=== PATIENT | male | born 1940 | race Caucasian/White ===

== ENCOUNTER 2019-05-17 18:05 | Inpatient (IN) ==
[2019-05-17] MEDS ORDERED: LIDOCAINE/EPINEPHRINE 1% 20 ML VIAL INFIL ONE (18:25)
[2019-05-17] MEDS ORDERED: SODIUM CHLORIDE 0.9% 500 ML IV SCH (18:30)
[2019-05-17 18:36] LABS: Basophils # (auto) 0.01 K/uL (0-0.2); Basophils % (auto) 0.2 %; Eosinophils # (auto) 0.06 K/uL (0-0.5); Eosinophils % (auto) 1.1 %; Hemoglobin 16.8 g/dL (14.0-18.0); Immature Granulocytes # (auto) 0.02 K/uL (0.00-0.02); Immature Granulocytes % (auto) 0.4 %; Lymphocytes # (auto) 1.54 K/uL (1.2-3.4); Lymphocytes % (auto) 27.9 %; Mean Corpuscular Hemoglobin 35.6 pg (25-34); Mean Corpuscular Hgb Conc 35.7 g/dL (32-36); Mean Corpuscular Volume 99.6 fL (80-100); Mean Platelet Volume 11.7 fL (7.4-10.4); Monocytes # (auto) 0.59 K/uL (0.11-0.59); Monocytes % (auto) 10.7 %; Neutrophils # (auto) 3.29 K/uL (1.4-6.5); Neutrophils % (auto) 59.7 %; Platelet Count 168 K/uL (130-400); RDW Coefficient of Variation 12.8 % (11.5-14.5); RDW Standard Deviation 46.6 fL (36.4-46.3); Red Blood Count 4.72 M/uL (4.7-6.1); White Blood Count 5.51 K/uL (4.8-10.8)
[2019-05-17 18:54] LABS: Albumin Level 4.4 gm/dl (3.4-5.0); BUN Creatinine Ratio 9.8 (10-20); Blood Urea Nitrogen 22 mg/dl (7-18); Calcium 9.5 mg/dl (8.5-10.1); Carbon Dioxide 25 mmol/L (21-32); Chloride 104 mmol/L (98-107); Est GFR (Non-African American) 26.7; Glucose 134 mg/dl (70-99); Lipase 186 U/L (73-393); Magnesium 2.2 mg/dl (1.8-2.4); Sodium 139 mmol/L (136-145)
[2019-05-17] MEDS: NITROGLYCERIN 2% OINTMENT 30GM TUBE EXT SCH (19:07)
[2019-05-17 19:17] LABS: Alanine Aminotransferase 53 U/L (12-78); Albumin Globulin Ratio 1.2 (0.9-2); Alkaline Phosphatase 107 U/L (45-117); Aspartate Aminotransferase 35 U/L (15-37); Creatine Kinase 90 U/L (39-308); Creatine Kinase MB 1.5 ng/ml (0.5-3.6); Globulin 3.7 gm/dl (2.5-4.0); NT Pro B Type Natriuretic Pept 1170 pg/ml (0-1800); Total Protein 8.1 gm/dl (6.4-8.2); Troponin I 0.207 ng/ml (0-0.045)
--- NOTE | 2019-05-17 19:51 | CT Scan Report ---
CT head/brain wo con CLINICAL HISTORY: Syncope. Patient on blood thinners. COMPARISON STUDY: No previous studies for comparison. TECHNIQUE: Axial CT of the brain is performed from the vertex to the skull base. IV contrast was not administered for this examination. A dose lowering technique was utilized adhering to the principles of ALARA. CT DOSE: FINDINGS: No intra or extra-axial mass lesions are visualized. There is no CT evidence of acute cortical infarc tion. There is no evidence of midline shift. There is no acute hemorrhage. No calvarial fractures ar e visualized. There are minimal white matter hypodensities likely on a small vessel basis. There is no hydrocephalus. There is ventricular asymmetry which is likely developmental. There is pro minent bifrontal extra-axial space likely secondary to volume loss. There is a prominent cisterna mag na. There is no evidence of acute sinusitis. There is a right frontal scalp contusion. IMPRESSION: 1. Right frontal scalp contusion 2. No acute intracranial findings. Electronically signed by: Chip Ferro M.D. 05/17/2019 7:50 PM
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
--- NOTE | 2019-05-17 20:09 | CT Scan Report ---
CT thoracic spine wo con CT DOSE: CLINICAL HISTORY: Back pain status post trauma TECHNIQUE: Helical images were acquired in the transverse plane. Sagittal coronal reformatted images were acquired. A dose lowering technique was utilized adhering to the principles of ALARA. COMPARISON STUDY: None. FINDINGS: There is a 5.8 mm left upper lobe pulmonary nodule. In a high-risk patient, 12 month follow -up is optional. There are dependent atelectatic changes. There are multiple scattered micronodules. No paraspinal hemorrhage is visualized. There is no evidence of acute fracture. No subluxations are visualized. 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 IMPRESSION: 1. 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 No acute fractures or traumatic subluxations 4. 5.8 mm left upper lobe pulmonary nodule Electronically signed by: Chip Ferro M.D. 05/17/2019 8:08 PM
[2019-05-17] MEDS ORDERED: ACETAMINOPHEN 1,000 MG/100 ML VIAL IV STA (20:15)
[2019-05-17] MEDS ORDERED: ONDANSETRON INJ 2 MG/ML 2 ML VIAL IV STA (20:15)
[2019-05-17] MEDS ORDERED: HYDROmorphone INJ 0.5 MG/0.5 ML SYR IV PRN (20:15)
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
[2019-05-17] MEDS ORDERED: ONDANSETRON INJ 2 MG/ML 2 ML VIAL IV PRN (23:56)
[2019-05-17] MEDS ORDERED: MAGNESIUM HYDROXIDE SUSP 30 ML UDC PO PRN (23:56)
[2019-05-17] MEDS ORDERED: NITROGLYCERIN SL 0.4 MG/TAB TAB SL PRN (23:56)
[2019-05-17] MEDS ORDERED: MoRPHine SULFATE 2 MG/ML CARP IV PRN (23:56)
[2019-05-17] MEDS ORDERED: ALUMINUM/MAGNESIUM SUSP 30 ML UDC PO PRN (23:56)
[2019-05-17] MEDS ORDERED: ACETAMINOPHEN 325 MG TAB PO PRN (23:56)
[2019-05-18] MEDS: RANOLAZINE 500 MG ER TAB PO SCH ×3 (00:48→21:09)
[2019-05-18] MEDS: APIXABAN 5 MG TABLET PO SCH ×2 (00:48→08:40)
[2019-05-18] MEDS: NITROGLYCERIN 2% OINTMENT 30GM TUBE EXT SCH ×3 (00:50→13:10)
[2019-05-18 08:24] LABS: Eosinophils # (auto) 0.07 K/uL (0-0.5); Eosinophils % (auto) 1.3 %; Hematocrit (blood only) 41.6 % (42-52); Immature Granulocytes # (auto) 0.01 K/uL (0.00-0.02); Immature Granulocytes % (auto) 0.2 %; Lymphocytes # (auto) 0.83 K/uL (1.2-3.4); Lymphocytes % (auto) 15.3 %; Mean Corpuscular Hemoglobin 34.6 pg (25-34); Mean Corpuscular Hgb Conc 33.7 g/dL (32-36); Mean Corpuscular Volume 102.7 fL (80-100); Mean Platelet Volume 10.3 fL (7.4-10.4); Monocytes # (auto) 0.53 K/uL (0.11-0.59); Monocytes % (auto) 9.8 %; Neutrophils # (auto) 3.98 K/uL (1.4-6.5); Neutrophils % (auto) 73.4 %; Platelet Count 137 K/uL (130-400); RDW Standard Deviation 48.9 fL (36.4-46.3); Red Blood Count 4.05 M/uL (4.7-6.1); White Blood Count 5.42 K/uL (4.8-10.8)
[2019-05-18] MEDS: VITAMIN B COMPLEX TAB PO SCH (08:39)
[2019-05-18] MEDS: CYANOCOBALAMIN 500 MCG TABLET (VITAMIN B-12) PO SCH (08:40)
[2019-05-18] MEDS: POTASSIUM CHLORIDE 20 MEQ TABCR PO SCH (08:40)
[2019-05-18] MEDS: FOLIC ACID 1 MG TAB PO SCH (08:40)
[2019-05-18] MEDS: ASCORBIC ACID 500 MG TAB PO SCH (08:41)
[2019-05-18] MEDS: SACUBITRIL-VALSARTAN 24-26 MG TAB PO SCH ×2 (08:42→21:08)
[2019-05-18] MEDS: ISOSORBIDE DINITRATE 20 MG TAB PO SCH ×2 (08:42→13:05)
[2019-05-18] MEDS: PANTOprazole 40 MG TAB PO SCH (08:42)
[2019-05-18 08:43] LABS: Calcium 8.9 mg/dl (8.5-10.1); Creatinine Clr Calc Pharmacy 29.4 ml/min; Est GFR (African American) 36.4; Est GFR (Non-African American) 31.4; Potassium 4.1 mmol/L (3.5-5.1)
[2019-05-18] MEDS: OMEGA-3 (PURIFIED FISH OIL) 1 GM CAP PO SCH (08:43)
[2019-05-18] MEDS: CHOLECALCIFEROL 1,000 UNITS TAB PO SCH (08:44)
[2019-05-18] MEDS ORDERED: NON-FORMULARY MEDICATION (Cod Liver Oil 1 CAP) PO SCH (09:00)
[2019-05-18] MEDS ORDERED: METOPROLOL SUCC 25MG EXT REL TAB PO SCH (09:00)
[2019-05-18] MEDS ORDERED: FUROSEMIDE 20 MG TAB PO SCH (09:00)
[2019-05-18] MEDS ORDERED: HydrALAZINE 10 MG TAB PO SCH (09:00)
--- NOTE | 2019-05-18 13:47 | Hospitalist Progress Note ---
Date of Service May 18, 2019 Assessment & Plan (1) Bradycardia: HR in the 40's at rest, was in the 30's when sleeping last night unsure of why he does not have pacemaker with ICD plan for pacemaker on Monday with EP hold metoprolol, will use Amiodarone to try to prevent vfib will hold Eliquis, place on Heparin drip (2) Syncope: Likely secondary to acute blood pressure drop with use of nitroglycerin sublingual x3. will keep on monitor, HR in the 40's at baseline had ICD fire 5 days ago for ventricular fibrillation Dr. Perkins recommends amiodarone drip, will start may need to hold if HR drops to 30's consistently plan for pacemaker on Monday troponin 0.2 for two sets, get one more value, no signs of ACS (3) Elevated troponin I level: Elevated troponin I level/CAD/hypertension/CHF/history of CABG- had some chest pain that resolved quickly after SL Nitro troponin 0.2 x 2 sets, no rise and fall check echo cardiology following (4) CAD (coronary artery disease), [place] coronary artery: aspirin, statin therapy requesting old records (5) CHF (congestive heart failure): examines euvolemic (6) Hypertension: BP low normal holding metoprolol, Lasix, hydralazine (7) Status post aorto-coronary artery bypass graft: Obtain records from the [place]. (8) Chronic anticoagulation: hold Eliquis, change to heparin drip in anticipation of pacemaker (9) Hyperlipidemia LDL goal <70: Continue atorvastatin 40 mg at bedtime. Check a fasting lipid panel (10) GERD (gastroesophageal reflux disease): Change omeprazole to pantoprazole (11) B12 deficiency: Continue 1000 mcg p.o. daily supplement Subjective patient resting comfortably this morning, no issues overnight he denies any chest pain currently, breathing well he ate breakfast discussed recent events, had a syncopal episode earlier in the week that was due to ventricular fibrillation his ICD fired appropriately last night he had some chest pain, took Nitro SL, 3 tabs 5 minutes apart each he passed out, hit is head in the kitchen very complex case, has had CABG in the past in [place] has the ICD since [address] Clay who called Dr. Perkins to discuss the case HR is in the 40's, unsure why he does not have a pacemaker to allow for more aggressive anti-arrhythmic control for now will place on amiodarone drip, plan for pacemaker on Monday reviewed labs, Cr down to 1.9 from 2.2 troponin is 0.2 for two sets Review of Systems Review of Systems: All systems reviewed & are unremarkable except as noted in HPI & below Respiratory: no cough and no dyspnea Cardiovascular: no chest pain, no palpitations, no syncope and no edema Gastrointestinal: no abdominal pain, no nausea, no vomiting, no constipation and no diarrhea/loose stools Physical Exam Constitutional: WD/WN, vitals as above Eyes: PERRL, conjunctivae normal, anicteric sclerae ENMT: external ear and nose normal, oropharynx normal Neck: trachea midline, no thyromegaly Respiratory: normal respiratory effort, lungs clear to auscultation Cardiovascular: Rate/Rhythm: regular rhythm and + bradycardic Heart Sounds: normal S1 and normal S2; no murmur Vessels: no JVD Extremities: normal capillary refill; no edema Gastrointestinal (Abdomen): normal bowel sounds, soft, nontender, no hepatosplenomegaly Musculoskeletal: no cyanosis or clubbing, extremities motor strength 5/5 Skin: no rashes, warm and dry Neurologic: patellar DTR's 2+ bilat, sensation intact and PERRL, EOMI, accommodation nl, no face palsy, no dysarthria Psychiatric: A+Ox3, euthymic affect Lymphatic: no cervical or axillary lymphadenopathy Results & Data Vital Signs (Past 12 Hours) Vital Signs Temp Pulse Pulse Resp BP Pulse Ox 05/18/19 11:40 36.9 C 47 L 18 100/45 L 95 05/18/19 09:25 42 L 05/18/19 07:44 36.4 C L 43 L 18 113/42 L 96 05/18/19 04:12 36 L 108/51 L 05/18/19 03:36 36.7 C 37 L 18 103/47 L 95 Laboratory Results Laboratory Results - last 24 hr 05/17/19 05/17/19 05/18/19 18:00 18:00 08:06 WBC 5.51 5.42 RBC 4.72 4.05 L Hgb 16.8 14.0 Hct 47.0 41.6 L MCV 99.6 102.7 H MCH 35.6 H 34.6 H MCHC 35.7 33.7 RDW Std Deviation 46.6 H 48.9 H RDW Coeff of Sandie 12.8 13.0 Plt Count 168 137 MPV 11.7 H 10.3 Immature Gran % (Auto) 0.4 0.2 Neut % (Auto) 59.7 73.4 Lymph % (Auto) 27.9 15.3 [place] % (Auto) 10.7 9.8 Eos % (Auto) 1.1 1.3 Baso % (Auto) 0.2 0.0 Immature Gran # (Auto) 0.02 0.01 Neut # (Auto) 3.29 3.98 Lymph # (Auto) 1.54 0.83 L [place] # (Auto) 0.59 0.53 Eos # (Auto) 0.06 0.07 Baso # (Auto) 0.01 0.00 Sodium 139 Potassium 4.0 Chloride 104 Carbon Dioxide 25 Anion Gap 10.0 BUN 22 H Creatinine 2.25 H Est Cr Clr Drug Dosing Not Reportable Est GFR ( Amer) 31.0 Est GFR (Non-Af Amer) 26.7 BUN/Creatinine Ratio 9.8 L Glucose 134 H Calcium 9.5 Magnesium 2.2 Total Bilirubin 1.0 AST 35 ALT 53 Alkaline Phosphatase 107 Total Creatine Kinase 90 CK-MB (CK-2) 1.5 CK/CKMB % Calc 1.7 Troponin I 0.207 H* NT-Pro-B Natriuret Pep 1170 Total Protein 8.1 Albumin 4.4 Globulin 3.7 Albumin/Globulin Ratio 1.2 Lipase 186 05/18/19 05/18/19 08:06 10:18 WBC RBC Hgb Hct MCV MCH MCHC RDW Std Deviation RDW Coeff of Sandie Plt Count MPV Immature Gran % (Auto) Neut % (Auto) Lymph % (Auto) [place] % (Auto) Eos % (Auto) Baso % (Auto) Immature Gran # (Auto) Neut # (Auto) Lymph # (Auto) [place] # (Auto) Eos # (Auto) Baso # (Auto) Sodium 138 Potassium 4.1 Chloride 104 Carbon Dioxide 29 Anion Gap 5.0 BUN 22 H Creatinine 1.97 H Est Cr Clr Drug Dosing 29.4 Est GFR ( Amer) 36.4 Est GFR (Non-Af Amer) 31.4 BUN/Creatinine Ratio 11.0 Glucose 124 H Calcium 8.9 Magnesium Total Bilirubin AST ALT Alkaline Phosphatase Total Creatine Kinase CK-MB (CK-2) CK/CKMB % Calc Troponin I 0.266 H* NT-Pro-B Natriuret Pep Total Protein Albumin Globulin Albumin/Globulin Ratio Lipase Medications Administered Current Inpatient Medications Acetaminophen (Tylenol) 650 mg PO Q4H PRN PRN Reason: Pain or Fever Stop: 06/16/19 23:55 Al Hydrox/Mg Hydrox/Simethicone (Maalox) 15 ml PO Q4H PRN PRN Reason: Dyspepsia Stop: 06/16/19 23:55 Apixaban (Eliquis) 5 mg PO BID [facility] Stop: 06/16/19 23:55 Last Admin: 05/18/19 08:40 Dose: 5 mg Documented by: Ascorbic Acid (Vitamin C) 2,000 mg PO QAM [facility] Stop: 06/17/19 08:59 Last Admin: 05/18/19 08:41 Dose: 2,000 mg Documented by: Aspirin (Ecotrin Ectab) 81 mg PO HS [facility] Stop: 06/17/19 20:59 Atorvastatin Calcium (Lipitor) 40 mg PO HS [facility] Stop: 06/17/19 20:59 Cyanocobalamin (Vitamin B-12) 1,000 mcg PO QAM [facility] Stop: 06/17/19 08:59 Last Admin: 05/18/19 08:40 Dose: 1,000 mcg Documented by: Fish Oil ([place]-3 (Purified Fish Oil)) 2 gm PO QAM [facility] Stop: 06/17/19 08:59 Last Admin: 05/18/19 08:43 Dose: 2 gm Documented by: Folic Acid (Folvite) 1 mg PO QAM [facility] Stop: 06/17/19 08:59 Last Admin: 05/18/19 08:40 Dose: 1 mg Documented by: Furosemide (Lasix) 20 mg PO QAM [facility] Stop: 06/17/19 08:59 Hydralazine HCl (Apresoline) 30 mg PO TID [facility] Stop: 06/17/19 08:59 Isosorbide Dinitrate (Isordil) 20 mg PO BID@0700,1200 [facility] Stop: 06/17/19 06:59 Last Admin: 05/18/19 13:05 Dose: 20 mg Documented by: Magnesium Hydroxide (Milk Of Magnesia) 30 ml PO Q12H PRN PRN Reason: Constipation Stop: 06/16/19 23:55 Metoprolol Su[facility] ([facility]l) [facility] Stop: 06/17/19 08:59 Last Admin: 05/18/19 08:41 Dose: 25 mg Documented by: Morphine Sulfate (Morphine Sulfate) 2 mg IV Q30M PRN PRN Reason: Chest Pain Stop: 05/31/19 23:55 Nitroglycerin (Nitro-Bid 2%) 1 inch EXT Q6H [facility] Stop: 06/16/19 18:44 Last Admin: 05/18/19 13:10 Dose: Not Given Documented by: Nitroglycerin (Nitrostat) 0.4 mg SL UD PRN PRN Reason: Chest Pain Stop: 06/16/19 23:55 Ondansetron HCl (Zofran) 4 mg IV Q6H PRN PRN Reason: Nausea Stop: 06/16/19 23:55 Pantoprazole Sodium (Protonix) 40 mg PO [facility] Stop: 06/17/19 08:59 Last Admin: 05/18/19 08:42 Dose: 40 mg Documented by: Potassium Chloride (Klor-Con M20) 20 meq [facility] [place] Stop: 06/17/19 08:59 Last Admin: 05/18/19 08:40 Dose: 20 meq Documented by: Ranolazine (Ranexa) 500 mg PO BID [facility] Stop: 06/16/19 23:55 Last Admin: 05/18/19 08:40 Dose: 500 mg Documented by: Sacubitril/Valsartan (Entresto 24/26mg) 1 tab PO BID [facility] Stop: 06/17/19 08:59 Last Admin: 05/18/19 08:42 Dose: 1 tab Documented by: Vitamin B Complex (Vitamin B Complex) 1 tab PO QAM [facility] Stop: 06/17/19 08:59 Last Admin: 05/18/19 08:39 Dose: 1 tab Documented by: Vitamin D (Vitamin D3) 5,000 units PO QAM [facility] Stop: 06/17/19 08:59 Last Admin: 05/18/19 08:44 Dose: 5,000 units Documented by: PG Care Time/CCT Total # of Minutes Spent Total Time Spent with Patient: Total time spent is greater than 50% in coordination of care (as documented) at patient's floor/unit and/or counseling patient:
--- NOTE | 2019-05-18 14:59 | Cardiology Consultation ---
Date of Consultation May 18, 2019 Assessment & Plan (1) Ventricular fibrillation: (2) S/P ICD (internal cardiac defibrillator) procedure: (3) CAD (coronary artery disease), red devil coronary artery: (4) Chronic systolic CHF (congestive heart failure): (5) Cardiomyopathy: (6) Bradycardia: (7) Status post aorto-coronary artery bypass graft: (8) Elevated troponin: ASSESSMENT/PLAN: 1. Ventricular fibrillation s/p ICD shock: Reported shock earlier this week and again yesterday. Apparently had similar issues this past summer and even late last winter. Records are requested from several other facilities. Has already had ischemic evaluation with cardiac catheterization with these issues earlier this year. No anginal symptoms other than some chest discomfort after he already become symptomatic with dizziness/fuzziness. Would like to titrate beta-paul and anti rhythmic therapy but has significant sinus bradycardia with rates in upper 30s to low 40s at times. Hold metoprolol for now. Will start mexiletine 150 mg p.o. t.i.d. after discussion with EP, Dr. Perkins. He plans for possible pacemaker in the next few days to allow for further titration of his anti rhythmics and beta-blockers. 2. CAD status post CABG: He did not present with acute coronary syndrome. Elevated troponins likely due to ischemia during ventricular fibrillation. Cannot rule out primary ischemia as the cause of his arrhythmia and therefore records requested as above. No indication for urgent cardiac catheterization. Recommend continuation of aspirin 81 mg daily. Holding beta-paul as above due to profound bradycardia. Continue high-intensity statin therapy. 3. Cardiomyopathy: Echocardiogram ordered. He appears euvolemic currently. Continue Entresto as tolerated. Holding beta-paul as above. Defibrillator in place. 4. Chronic systolic CHF: He appears euvolemic. Can continue home dose of diuretic. 5. CKD: He reports having a creatinine in the 2 range this past summer and before that, creatinine was just below to. 6. Elevated troponin: Likely due to ischemia from ventricular arrhythmia as noted above. 7. Sinus bradycardia: Difficult to titrate medications as above, which appear to be necessary for his ventricular arrhythmia and would also be beneficial with his CAD and heart failure/cardiomyopathy. Consideration for pacemaker in the next few days. No urgent indication at this time. Will hold Eliquis and start heparin drip later tonight in anticipation of possible pacemaker on David. Discussed with ethylbenzene oxidizer, Dr. Perkins. 8. Disposition: Cardiology will continue to follow. Dr. Perkins of electrophysiology was contacted to discuss as noted above with possible pacemaker during this hospitalization. Plan of care also discussed with Dr. Cueto and nursing staff. Please call with any other questions or concerns. We discussed the fact that he should not be driving. 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 Highly complex medical issues. Thank you for allowing me to participate in the care of your patient. Please call for any other questions or concerns. Sincerely, Kan Clay M.D. History of Present Illness Reason for Consultation: Syncope and ventricular fibrillation Requesting Physician: Dr. Loredo Attending Physician: Nahid Cueto, History of Present Illness Mr. Monique is a very pleasant 78-year-old gentleman with history significant for multivessel CAD status post CABG x3 with 2 known occluded grafts, cardiomyopathy, systolic CHF, ventricular arrhythmia, ICD, hypertension, dyslipidemia, and chronic anticoagulation. [facility] [place] He resides in [place]. He has received cardiology care and procedures at several different facilities including the [facility] in [place], [facility], [facility], and [facility] in [place]. He has had the following studies/procedures: 1. Cardiac catheterization 1991 for UT. 2. CABG x3 1991 at [facility] in [place]. 3. Cardiac catheterization 2013 [facility]: Multivessel CAD. Two bypass grafts were occluded, 1 patent. Collateral vessels. Reports not available at the time of this note but reported by patient. 4. Subcutaneous ICD June 2015 [facility]: 7digital 5. Cardiac catheterization October [address] [facility]: He reports stable findings compared to 2013 catheterization. He believes that his first shock from his ICD was in August of 2018. Then in October of 2018 he was ill and hospitalized but no ICD shock. He underwent cardiac catheterization and due to stable findings, no revascularization was recommended. He remembers being told that collateral vessels were present. In December, he reports 3 ICD shocks within 30 minutes. He was hospitalized for a few days, discharged, only to have another shock within 3 days of discharge. In December, he was once again hospitalized with cardiac issues but no shock. He admits that with these hospitalizations, changes were made to his medications. He then did well for several months until earlier this week. On Monday, he was getting ready for bed and got dizzy. He sat down on his bed and then laid down due to continued symptoms. He then had a syncopal episode. When he awakened, he vomited. Two days ago on 05/16/2019, he had a routine ICD interrogation in [place]. He was told that he had shock on Monday, reportedly for ventricular fibrillation. Metoprolol succinate was increased from 12.5 to 25 mg, which she started yesterday. He has been on amiodarone 200 mg at home as well. Then yesterday, he was sitting on the couch watching TV and eating candy. He felt fuzzy in the head. He then developed substernal chest discomfort, a heavy feeling. He took nitroglycerin x3 every 5 minutes. Chest discomfort resolved. He also took aspirin 81 mg x3. He then walked into the kitchen to take hydralazine. While standing in the kitchen, he once again lost consciousness. When he woke up, he vomited. He was home alone with his 8 and 9-year-old grandchildren and found them trying to wake him up. He called for EMS. ICD was interrogated and it appears as though ventricular fibrillation occurred with ICD shock at approximately 5:19 pm. While here, he has been asymptomatic. He does not exercise but remains active at home and despite activity, has not been experiencing chest discomfort. He has chronic but stable mild dyspnea with exertion with certain activities. He maintains a low-sodium diet. He has been compliant with his medications, including diuretic. He also has been taking his amiodarone and metoprolol. He has not noted any lower extremity edema. He denies orthopnea or palpitations. He lives in [place] and was visiting his Daughter who lives locally. His son, Peterson, is present at the bedside. He recalls having an echo done in December at [facility]. He knows that his heart is weak and enlarged but does not recall his EF. He also recalls being told that he has a leaky heart valve. He was told that surgical procedure for the valve was not an option. Review of systems: As above. Review of systems otherwise negative/unremarkable. Family history: Younger brother had UT and stroke. Social history: Quit smoking in 1977. No alcohol or drugs. Lives at home with his in [place]. He has 3 children, 2 sons and 1 daughter. Grandchildren. 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 His son, Peterson is present at the bedside. Allergies Allergy/AdvReac Type Severity Reaction Status Date / Time sulfamethoxazole Allergy Intermediate Flu like Verified 05/17/19 22:04 [From Bactrim] symptoms trimethoprim [From Bactrim] Allergy Intermediate Flu like Verified 05/17/19 22:04 symptoms Home Medications Home Medications Medication Instructions Recorded Confirmed Type amiodarone 200 mg PO QAM 05/17/19 05/17/19 History apixaban [Eliquis] 5 mg PO BID 05/17/19 05/17/19 History ascorbic acid (vitamin C) [Vitamin 2,000 mg PO QAM 05/17/19 05/17/19 History C] aspirin 81 mg PO HS 05/17/19 05/17/19 History atorvastatin 40 mg PO HS 05/17/19 05/17/19 History cholecalciferol (vitamin D3) 5,000 unit PO QAM 05/17/19 05/17/19 History [Vitamin D3] cod liver oil 1 cap PO QAM 05/17/19 05/17/19 History cyanocobalamin (vitamin B-12) 1,000 mcg PO QAM 05/17/19 05/17/19 History [Vitamin B-12] folic acid 1 mg PO QAM 05/17/19 05/17/19 History furosemide 20 mg PO QAM 05/17/19 05/17/19 History hydralazine 30 mg PO TID 05/17/19 05/17/19 History isosorbide dinitrate 20 mg PO BID 05/17/19 05/17/19 History metoprolol succinate 25 mg PO QAM 05/17/19 05/17/19 History omega 0-dsj-pmj-fish oil [Fish Oil] 2 cap PO QAM 05/17/19 05/17/19 History omeprazole 20 mg PO QAM 05/17/19 05/17/19 History potassium chloride 20 meq PO QAM 05/17/19 05/17/19 History ranolazine 500 mg PO BID 05/17/19 05/17/19 History sacubitril-valsartan [Entresto] 1 tab PO BID 05/17/19 05/17/19 History vitamin B complex 1 cap PO QAM 05/17/19 05/17/19 History Patient History Medical History B12 deficiency CAD (coronary artery disease), red devil coronary artery Cardiomyopathy CHF (congestive heart failure) Chronic anticoagulation Chronic systolic CHF (congestive heart failure) GERD (gastroesophageal reflux disease) H/O ventricular fibrillation Hyperlipidemia LDL goal <70 Hypertension Ventricular fibrillation Surgical History (Updated 05/18/19 @ 14:49 by Uriel Clay MD) History of heart bypass surgery S/P ICD (internal cardiac defibrillator) procedure Status post aorto-coronary artery bypass graft Social History Preferred Language: Tanzanian Communication Ability: Effective Beliefs That Will Affect Care: None Current Living Situation: Spouse Feels Safe at Home: Yes Safety Concerns: Feels Safe At This Time Smoking Status: Never smoker Hx Alcohol Use: No Hx Substance Use: No Physical Exam Physical Exam: Gen.: No acute distress. Alert and oriented. HEENT: Anicteric sclera. Neck: No JVD. No hepatic jugular reflux. No bruits. Normal carotid upstrokes bilaterally. Cardiac: PMI was nonpalpable . No ventricular heave. Regular and bradycardic in the 40s. Normal S1-S2. 1/6 systolic murmur. No rubs, or gallops. Pulmonary: Clear to auscultation bilaterally without wheezes, rales, or rhonchi. Abdomen: Soft, nontender, nondistended, with normoactive bowel sounds. No bruits noted. Extremities: 2+ radial pulses bilaterally. 1+ posterior tibialis pulses bilaterally. No significant pitting edema or cyanosis. No palpable cords. Psychiatric: Affect appears appropriate. Results & Data Vital Signs (Past 12 Hours) Vital Signs Temp Pulse Pulse Resp BP Pulse Ox 05/18/19 11:40 36.9 C 47 L 18 100/45 L 95 05/18/19 09:25 42 L 05/18/19 07:44 36.4 C L 43 L 18 113/42 L 96 05/18/19 04:12 36 L 108/51 L 05/18/19 03:36 36.7 C 37 L 18 103/47 L 95 Laboratory Results Laboratory Results - last 24 hr 05/17/19 05/17/19 05/18/19 18:00 18:00 08:06 WBC 5.51 5.42 RBC 4.72 4.05 L Hgb 16.8 14.0 Hct 47.0 41.6 L MCV 99.6 102.7 H MCH 35.6 H 34.6 H MCHC 35.7 33.7 RDW Std Deviation 46.6 H 48.9 H RDW Coeff of Sandie 12.8 13.0 Plt Count 168 137 MPV 11.7 H 10.3 Immature Gran % (Auto) 0.4 0.2 Neut % (Auto) 59.7 73.4 Lymph % (Auto) 27.9 15.3 Ballard % (Auto) 10.7 9.8 Eos % (Auto) 1.1 1.3 Baso % (Auto) 0.2 0.0 Immature Gran # (Auto) 0.02 0.01 Neut # (Auto) 3.29 3.98 Lymph # (Auto) 1.54 0.83 L Ballard # (Auto) 0.59 0.53 Eos # (Auto) 0.06 0.07 Baso # (Auto) 0.01 0.00 Sodium 139 Potassium 4.0 Chloride 104 Carbon Dioxide 25 Anion Gap 10.0 BUN 22 H Creatinine 2.25 H Est Cr Clr Drug Dosing Not Reportable Est GFR ( Amer) 31.0 Est GFR (Non-Af Amer) 26.7 BUN/Creatinine Ratio 9.8 L Glucose 134 H Calcium 9.5 Magnesium 2.2 Total Bilirubin 1.0 AST 35 ALT 53 Alkaline Phosphatase 107 Total Creatine Kinase 90 CK-MB (CK-2) 1.5 CK/CKMB % Calc 1.7 Troponin I 0.207 H* NT-Pro-B Natriuret Pep 1170 Total Protein 8.1 Albumin 4.4 Globulin 3.7 Albumin/Globulin Ratio 1.2 Lipase 186 05/18/19 05/18/19 08:06 10:18 WBC RBC Hgb Hct MCV MCH MCHC RDW Std Deviation RDW Coeff of Sandie Plt Count MPV Immature Gran % (Auto) Neut % (Auto) Lymph % (Auto) Ballard % (Auto) Eos % (Auto) Baso % (Auto) Immature Gran # (Auto) Neut # (Auto) Lymph # (Auto) Ballard # (Auto) Eos # (Auto) Baso # (Auto) Sodium 138 Potassium 4.1 Chloride 104 Carbon Dioxide 29 Anion Gap 5.0 BUN 22 H Creatinine 1.97 H Est Cr Clr Drug Dosing 29.4 Est GFR ( Amer) 36.4 Est GFR (Non-Af Amer) 31.4 BUN/Creatinine Ratio 11.0 Glucose 124 H Calcium 8.9 Magnesium Total Bilirubin AST ALT Alkaline Phosphatase Total Creatine Kinase CK-MB (CK-2) CK/CKMB % Calc Troponin I 0.266 H* NT-Pro-B Natriuret Pep Total Protein Albumin Globulin Albumin/Globulin Ratio Lipase Diagnostic Findings Telemetry personally reviewed: Sinus bradycardia. ECG personally reviewed: ECG 05/17/2019: Sinus bradycardia 54 bpm. Prolonged QT. Inferior infarct. ECG 05/18/2019: Sinus bradycardia 44 bpm. Prolonged QT. Inferior infarct. CT chest 05/17/2019: No evidence of acute intrathoracic injury per Radiology. 5.5 mm left upper lobe pulmonary nodule per Radiology. Images were personally reviewed to locate ICD. Subcutaneous device noted. Medications Administered Current Inpatient Medications Acetaminophen (Tylenol) 650 mg PO Q4H PRN PRN Reason: Pain or Fever Stop: 06/16/19 23:55 Al Hydrox/Mg Hydrox/Simethicone (Maalox) 15 ml PO Q4H PRN PRN Reason: Dyspepsia Stop: 06/16/19 23:55 Apixaban (Eliquis) 5 mg PO BID [facility] Stop: 06/16/19 23:55 Last Admin: 05/18/19 08:40 Dose: 5 mg Documented by: Ascorbic Acid (Vitamin C) 2,000 mg PO QAM [facility] Stop: 06/17/19 08:59 Last Admin: 05/18/19 08:41 Dose: 2,000 mg Documented by: Aspirin (Ecotrin Ectab) 81 mg PO HS [facility] Stop: 06/17/19 20:59 Atorvastatin Calcium (Lipitor) 40 mg PO HS [facility] Stop: 06/17/19 20:59 Cyanocobalamin (Vitamin B-12) 1,000 mcg PO QAM [facility] Stop: 06/17/19 08:59 Last Admin: 05/18/19 08:40 Dose: 1,000 mcg Documented by: Fish Oil ([place]-3 (Purified Fish Oil)) 2 gm PO QAM [facility] Stop: 06/17/19 08:59 Last Admin: 05/18/19 08:43 Dose: 2 gm Documented by: Folic Acid (Folvite) 1 mg PO QAM [facility] Stop: 06/17/19 08:59 Last Admin: 05/18/19 08:40 Dose: 1 mg Documented by: Furosemide (Lasix) 20 mg PO QAM [facility] Stop: 06/17/19 08:59 Heparin Sodium/Dextrose () 1 ea IV Q15M [facility]; Protocol Stop: 05/18/19 15:16 Hydralazine HCl (Apresoline) 30 mg PO TID [facility] Stop: 06/17/19 08:59 Heparin Sodium/Dextrose (Heparin Sodium/Dextrose) 25,000 units in 500 mls @ 0.02 mls/hr IV .Q24H [facility]; Protocol Stop: 06/17/19 20:59 Isosorbide Dinitrate (Isordil) 20 mg PO BID@0700,1200 [facility] Stop: 06/17/19 06:59 Last Admin: 05/18/19 13:05 Dose: 20 mg Documented by: Magnesium Hydroxide (Milk Of Magnesia) 30 ml PO Q12H PRN PRN Reason: Constipation Stop: 06/16/19 23:55 Metoprolol Succinate (Toprol Xl) 25 mg PO [facility] Stop: 06/17/19 08:59 Last Admin: 05/18/19 08:41 Dose: 25 mg Documented by: Mexiletine HCl (Mexitil) 150 mg PO TID [facility] Stop: 06/17/19 20:59 Morphine Sulfate (Morphine Sulfate) 2 mg IV Q30M PRN PRN Reason: Chest Pain Stop: 05/31/19 23:55 Nitroglycerin (Nitro-Bid 2%) 1 inch EXT Q6H [facility] Stop: 06/16/19 18:44 Last Admin: 05/18/19 13:10 Dose: Not Given Documented by: Nitroglycerin (Nitrostat) 0.4 mg SL UD PRN PRN Reason: Chest Pain Stop: 06/16/19 23:55 Ondansetron HCl (Zofran) 4 mg IV Q6H PRN PRN Reason: Nausea Stop: 06/16/19 23:55 Pantoprazole Sodium (Protonix) 40 mg PO [facility] Stop: 06/17/19 08:59 Last Admin: 05/18/19 08:42 Dose: 40 mg Documented by: Potassium Chloride (Klor-Con M20) 20 meq PO QAM [facility] Stop: 06/17/19 08:59 Last Admin: 05/18/19 08:40 Dose: 20 meq Documented by: Ranolazine (Ranexa) 500 mg PO BID [facility] Stop: 06/16/19 23:55 Last Admin: 05/18/19 08:40 Dose: 500 mg Documented by: Sacubitril/Valsartan (Entresto 24/26mg) 1 tab PO BID [facility] Stop: 06/17/19 08:59 Last Admin: 05/18/19 08:42 Dose: 1 tab Documented by: Vitamin B Complex (Vitamin B Complex) 1 tab PO QAM [facility] Stop: 06/17/19 08:59 Last Admin: 05/18/19 08:39 Dose: 1 tab Documented by: Vitamin D (Vitamin D3) 5,000 units PO QAM [facility] Stop: 06/17/19 08:59 Last Admin: 05/18/19 08:44 Dose: 5,000 units Documented by: PG Care Time/CCT Total # of Minutes Spent Total Time Spent with Patient: Total time spent is greater than 50% in coordination of care (as documented) at patient's floor/unit and/or counseling patient:
[2019-05-18] MEDS: Heparin IV Standard *NO* Bolus IV SCH (15:00)
[2019-05-18] MEDS ORDERED: Nursing to Pharmacy Communication ONE (15:01)
[2019-05-18] MEDS: ATORVASTATIN 40 MG TAB PO SCH (21:08)
[2019-05-18 21:55] LABS: INR 1.2 (0.9-1.1); Partial Thromboplastin Time 27.2 Seconds (21.0-31.0); Prothrombin Time 11.8 Seconds (9.0-12.0)
[2019-05-18] MEDS: HEPARIN SODIUM/DEXTROSE 25,000 UNITS/500 ML BAG IV SCH (22:00)
[2019-05-18] MEDS: MEXILETINE HCL 150 MG CAPSULE PO SCH (22:01)
[2019-05-18] MEDS: ASPIRIN 81 MG ECTAB PO SCH (22:01)
--- NOTE | 2019-05-19 00:22 | Emergency Department Note ---
Entered by Jesika Larry acting as a scribe for History of Present Illness General Chief complaint: Syncope Stated complaint: FALL Time Seen by Provider: 05/17/19 18:07 Source: patient and EMS Mode of arrival: EMS History of Present Illness Provider complaint: syncope Onset (ago): hour(s) ([employer]) Location: head Severity: similar to prior episodes Pain Consistency: + other (episode) Relieved By: + none Associated symptoms: no chest pain and no shortness of breath The patient is a 78 year old male who presents to the Emergency Room with complaints of syncope episode which occurred prior to arrival. Per EMS, the patient had a similar syncope episode on Monday where he was brought to the ED and they reported that his defibrillator went off. The patient reports that he has had his defibrillator since June 2015. He states prior to his episode tonight he was taking his evening medication where he started to experience chest pain. He denies any current chest pain or shortness of breath. He notes that he took 3 nitroglycerine and does not remember his fall. He notes that he sees his video effects editor in at the [facility]. Home Medications Home Medications Medication Instructions Recorded Confirmed Type amiodarone 200 mg PO QAM 05/17/19 05/17/19 History apixaban [Eliquis] 5 mg PO BID 05/17/19 05/17/19 History ascorbic acid (vitamin C) [Vitamin 2,000 mg PO QAM 05/17/19 05/17/19 History C] aspirin 81 mg PO HS 05/17/19 05/17/19 History atorvastatin 40 mg PO HS 05/17/19 05/17/19 History cholecalciferol (vitamin D3) 5,000 unit PO QAM 05/17/19 05/17/19 History [Vitamin D3] cod liver oil 1 cap PO QAM 05/17/19 05/17/19 History cyanocobalamin (vitamin B-12) 1,000 mcg PO QAM 05/17/19 05/17/19 History [Vitamin B-12] folic acid 1 mg PO QAM 05/17/19 05/17/19 History furosemide 20 mg PO QAM 05/17/19 05/17/19 History hydralazine 30 mg PO TID 05/17/19 05/17/19 History isosorbide dinitrate 20 mg PO BID 05/17/19 05/17/19 History metoprolol succinate 25 mg PO QAM 05/17/19 05/17/19 History omega 1-twg-mgy-fish oil [Fish Oil] 2 cap PO QAM 05/17/19 05/17/19 History omeprazole 20 mg PO QAM 05/17/19 05/17/19 History potassium chloride 20 meq PO QAM 05/17/19 05/17/19 History ranolazine 500 mg PO BID 05/17/19 05/17/19 History sacubitril-valsartan [Entresto] 1 tab PO BID 05/17/19 05/17/19 History vitamin B complex 1 cap PO QAM 05/17/19 05/17/19 History Allergies Allergy/AdvReac Type Severity Reaction Status Date / Time sulfamethoxazole Allergy Intermediate Flu like Verified 05/17/19 22:04 [From Bactrim] symptoms trimethoprim [From Bactrim] Allergy Intermediate Flu like Verified 05/17/19 22:04 symptoms Past Med/Surg History Medical History B12 deficiency CAD (coronary artery disease), [place] coronary artery Cardiomyopathy CHF (congestive heart failure) Chronic anticoagulation Chronic systolic CHF (congestive heart failure) GERD (gastroesophageal reflux disease) H/O ventricular fibrillation Hyperlipidemia LDL goal <70 Hypertension Ventricular fibrillation Surgical History (Updated 05/18/19 @ 14:49 by Uriel Clay MD) History of heart bypass surgery S/P ICD (internal cardiac defibrillator) procedure Status post aorto-coronary artery bypass graft Social History Preferred Language: Dutch Communication Ability: Effective Beliefs That Will Affect Care: None Current Living Situation: Spouse Feels Safe at Home: Yes Safety Concerns: Feels Safe At This Time Smoking Status: Never smoker Hx Alcohol Use: No Hx Substance Use: No Review of Systems See HPI for pertinent positives & negatives. and A total of 10 systems reviewed and were otherwise negative Physical Exam Vital Signs Vital Signs - 24 hr 05/17/19 18:09 05/17/19 18:15 05/17/19 18:24 Temperature 97.7 F Temperature Source Oral Pulse Rate 54 L 56 L Pulse Rate from SpO2 Sensor 55 L Pulse Rhythm Regular Pulse Strength Normal Respiratory Rate 16 20 Respiratory Effort / Characteristics Non-Labored Spontaneous Respiratory Depth Normal Respiratory Pattern Regular Blood Pressure 127/63 127/63 Blood Pressure Mean 94 84 Blood Pressure Position Sitting Pulse Oximetry 97 98 98 Oxygen Delivery Method Room Air Room Air Sepsis Recent Fever Within 48 Hours No Sepsis New/Unexplained Change in Mental Status No Sepsis Action Taken by Nursing No Action Required 05/17/19 18:47 05/17/19 19:00 05/17/19 19:55 Temperature Temperature Source Pulse Rate 54 L 57 L 58 L Pulse Rate from SpO2 Sensor 53 L 57 L Pulse Rhythm Pulse Strength Respiratory Rate 7 L 17 14 Respiratory Effort / Characteristics Respiratory Depth Respiratory Pattern Blood Pressure 143/74 H Blood Pressure Mean 92 Blood Pressure Position Pulse Oximetry 96 98 Oxygen Delivery Method Sepsis Recent Fever Within 48 Hours Sepsis New/Unexplained Change in Mental Status Sepsis Action Taken by Nursing 05/17/19 19:56 05/17/19 20:00 05/17/19 21:00 Temperature Temperature Source Pulse Rate 59 L 58 L 50 L Pulse Rate from SpO2 Sensor Pulse Rhythm Pulse Strength Respiratory Rate 18 18 18 Respiratory Effort / Characteristics Respiratory Depth Respiratory Pattern Blood Pressure 143/74 H 123/68 Blood Pressure Mean 97 86 Blood Pressure Position Pulse Oximetry 98 97 Oxygen Delivery Method Room Air Room Air Sepsis Recent Fever Within 48 Hours Sepsis New/Unexplained Change in Mental Status Sepsis Action Taken by Nursing GENERAL: Awake, alert, well-appearing, in no acute distress HENT: 2.6 laceration to right eyebrow. Normocephalic. Oropharynx unremarkable. EYES: Normal conjunctiva. Sclera non-icteric. NECK: Supple. No nuchal rigidity. FROM. No JVD. RESPIRATORY: Clear to auscultation. CARDIAC: Regular rate, normal rhythm. Extremities warm and well perfused. Pulses equal. ABDOMEN: Soft, non-distended. No tenderness to palpation. No rebound or guarding. No masses. RECTAL: Deferred. MUSCULOSKELETAL: Chest examination reveals no tenderness. The back is symmetrical on inspection without obvious abnormality. There is no CVA tenderness to palpation. No joint edema. LOWER EXTREMITIES: Calves are equal size bilaterally and non-tender. No edema. No discoloration. NEURO: Normal sensorium. No sensory or motor deficits noted. SKIN: No rash or jaundice noted. Procedures Laceration Laceration 1: Site: face Side (If applicable): right Size (cm): 2.6 Description: linear Depth: simple, single layer Local Anesthetic: lidocaine 1% Amount of anesthesia used (mL): 4 Pre-repair: wound explored, irrigated extensively and deep structures intact Skin layer closed with: nylon Size (cm): 5-0 Number of sutures: 2 Technique: simple, interrupted Course Course 1808: The patient was evaluated in room B12, and a complete history and physical examination were performed. EMR reviewed the patient was discharged Monday from the ED in [place] after his episode of vomiting and syncope. It reports that the patient followed up with his video effects editor Dr. Linn where he doubled his Metoprolol from 12.5 to 25. The patient has a history of bypass and his last cardiac catheterization in October was unchanged from 2013. He is currently on Eliquis. 1824: I contacted Dr. Linn's office and there was no one available. I contacted [facility] and there was no one available. I will try to integrate the pacemaker with a [employer] Device without success. 1902: I reevaluated the patient and reviewed his kidney function. He reports that his creatinine of 2.25 is at baseline. 1935: I reevaluated the patient and updated him on his results. 1949: I performed a laceration repair, see procedure note for details. 2022: I reviewed the patient's case with Dr. Loredo- [facility] Hospitalist. He will evaluate the patient for further management. Administered Medications Apixaban (Eliquis) 5 mg PO BID [facility] Stop: 06/16/19 23:55 Last Admin: 05/18/19 08:40 Dose: 5 mg Documented by: [id number] Admin: 05/18/19 00:48 Dose: 5 mg Documented by: [id number] Ascorbic Acid (Vitamin C) 2,000 mg PO QAM [facility] Stop: 06/17/19 08:59 Last Admin: 05/18/19 08:41 Dose: 2,000 mg Documented by: [id number] Aspirin (Ecotrin Ectab) 81 mg PO HS [facility] Stop: 06/17/19 20:59 Last Admin: 05/18/19 22:01 Dose: 81 mg Documented by: [id number] Atorvastatin Calcium (Lipitor) 40 mg PO HS [facility] Stop: 06/17/19 20:59 Last Admin: 05/18/19 21:08 Dose: 40 mg Documented by: [id number] Cyanocobalamin (Vitamin B-12) 1,000 mcg PO QAM [facility] Stop: 06/17/19 08:59 Last Admin: 05/18/19 08:40 Dose: 1,000 mcg Documented by: [id number] Fish Oil ([place]-3 (Purified Fish Oil)) 2 gm PO QAM [facility] Stop: 06/17/19 08:59 Last Admin: 05/18/19 08:43 Dose: 2 gm Documented by: [id number] Folic Acid (Folvite) [facility] [place] Stop: 06/17/19 08:59 Last Admin: 05/18/19 08:40 Dose: 1 mg Documented by: [id number] Heparin Sodium/Dextrose (Heparin Sodium/Dextrose) 25,000 units in 500 mls @ 26 mls/hr IV .[id number] [facility]; Protocol Stop: 06/17/19 20:59 Last Admin: 05/18/19 22:00 Dose: 1,300 units/hr, 26 mls/hr Documented by: [id number] Cosigned by: [id number] Isosorbide Dinitrate (Isordil) 20 mg PO BID@0700,1200 [facility] Stop: 06/17/19 06:59 Last Admin: 05/18/19 13:05 Dose: 20 mg Documented by: [id number] Admin: 05/18/19 08:42 Dose: 20 mg Documented by: [id number] Metoprolol Succinate (Toprol Xl) 25 mg PO [facility] Stop: 06/17/19 08:59 Last Admin: 05/18/19 08:41 Dose: 25 mg Documented by: [id number] Mexiletine HCl (Mexitil) 150 mg PO TID [facility] Stop: 06/17/19 20:59 Last Admin: 05/18/19 22:01 Dose: Not Given Documented by: [id number] Nitroglycerin (Nitro-Bid 2%) 1 inch EXT Q6H [facility] Stop: 06/16/19 18:44 Last Admin: 05/18/19 13:10 Dose: Not Given Documented by: [id number] Admin: 05/18/19 06:02 Dose: Not Given Documented by: [id number] Admin: 05/18/19 00:50 Dose: 1 inch Documented by: [id number] Admin: 05/17/19 19:07 Dose: 1 inch Documented by: [id number] Pantoprazole Sodium (Protonix) 40 mg PO QAM [facility] Stop: 06/17/19 08:59 Last Admin: 05/18/19 08:42 Dose: 40 mg Documented by: [id number] Potassium Chloride (Klor-Con M20) 20 meq PO QAM [facility] Stop: 06/17/19 08:59 Last Admin: 05/18/19 08:40 Dose: 20 meq Documented by: [id number] Ranolazine (Ranexa) 500 mg PO BID [facility] Stop: 06/16/19 23:55 Last Admin: 05/18/19 21:09 Dose: 500 mg Documented by: [id number] Admin: 05/18/19 08:40 Dose: 500 mg Documented by: [id number] Admin: 05/18/19 00:48 Dose: 500 mg Documented by: [id number] Sacubitril/Valsartan (Entresto 24/26mg) 1 tab PO BID [facility] Stop: 06/17/19 08:59 Last Admin: 05/18/19 21:08 Dose: 1 tab Documented by: [id number] Admin: 05/18/19 08:42 Dose: 1 tab Documented by: [id number] Vitamin B Complex (Vitamin B Complex) 1 tab PO QAM [facility] Stop: 06/17/19 08:59 Last Admin: 05/18/19 08:39 Dose: 1 tab Documented by: [id number] Vitamin D (Vitamin D3) 5,000 units PO QAM [facility] Stop: 06/17/19 08:59 Last Admin: 05/18/19 08:44 Dose: 5,000 units Documented by: [id number] Discontinued Medications Heparin Sodium/Dextrose () 1 ea IV Q15M [facility]; Protocol Stop: 05/18/19 15:16 Last Admin: 05/18/19 15:00 Dose: Not Given Documented by: [id number] Admin: 05/18/19 15:00 Dose: Not Given Documented by: [id number] Admin: 05/18/19 15:00 Dose: Not Given Documented by: [id number] Admin: 05/18/19 15:00 Dose: Not Given Documented by: [id number] Hydromorphone HCl (Dilaudid) 0.25 mg IV Q15M PRN PRN Reason: Pain Stop: 05/31/19 20:14 Last Admin: 05/17/19 20:33 Dose: 0.25 mg Documented by: [id number] Sodium Chloride (Nss) 500 mls @ 999 mls/hr IV .Q31M [facility] Stop: 05/17/19 19:00 Last Infusion: 05/17/19 20:35 Dose: 0 mls/hr Documented by: [id number] Admin: 05/17/19 19:43 Dose: 999 mls/hr Documented by: [id number] Acetaminophen (Ofirmev) 1,000 mg in 100 mls @ 400 mls/hr IV NOW STA Stop: 05/17/19 20:29 Last Infusion: 05/17/19 21:23 Dose: 0 mls/hr Documented by: [id number] Admin: 05/17/19 20:33 Dose: 400 mls/hr Documented by: [id number] Lidocaine/Epinephrine (Xylocaine/Epinephrine 1%) 20 ml INFIL NOW ONE Stop: 05/17/19 18:26 Last Admin: 05/17/19 19:44 Dose: 20 ml Documented by: [id number] Ondansetron HCl (Zofran) 4 mg IV NOW STA Stop: 05/17/19 20:16 Last Admin: 05/17/19 20:33 Dose: 4 mg Documented by: [id number] Medical Decision Making Differential Diagnosis Differential diagnosis: Etiologies such as cardiac ischemia, aortic dissection, pulmonary embolism, pneumonia, pneumothorax, musculoskeletal, infections, pericarditis, myocarditis, esophageal rupture, gastrointestinal, as well as others were entertained. Medical Records Attestation: I reviewed the patient's medical records. Home Medications Current Medication List: was personally reviewed by me Laboratory Data Attestation: I reviewed the patient's lab results. Result diagrams: 05/18/19 08:06 05/18/19 08:06 Lab Results 05/17/19 05/17/19 Range/Units 18:00 18:00 WBC 5.51 (4.8-10.8) K/uL RBC 4.72 (4.7-6.1) M/uL Hgb 16.8 (14.0-18.0) g/dL Hct 47.0 (42-52) % MCV 99.6 (80-100) fL MCH 35.6 H (25-34) pg MCHC 35.7 (32-36) g/dL RDW Std Deviation 46.6 H (36.4-46.3) fL RDW Coeff of Sandie 12.8 (11.5-14.5) % Plt Count 168 (130-400) K/uL MPV 11.7 H (7.4-10.4) fL Immature Gran % (Auto) 0.4 % Neut % (Auto) 59.7 % Lymph % (Auto) 27.9 % [place] % (Auto) 10.7 % Eos % (Auto) 1.1 % Baso % (Auto) 0.2 % Immature Gran # (Auto) 0.02 (0.00-0.02) K/uL Neut # (Auto) 3.29 (1.4-6.5) K/uL Lymph # (Auto) 1.54 (1.2-3.4) K/uL [place] # (Auto) 0.59 (0.11-0.59) K/uL Eos # (Auto) 0.06 (0-0.5) K/uL Baso # (Auto) 0.01 (0-0.2) K/uL Sodium 139 (136-145) mmol/L Potassium 4.0 (3.5-5.1) mmol/L Chloride 104 (98-107) mmol/L Carbon Dioxide 25 (21-32) mmol/L Anion Gap 10.0 (3-11) BUN 22 H (7-18) mg/dl Creatinine 2.25 H (0.6-1.4) mg/dl Est Cr Clr Drug Dosing Not Reportable Est GFR ( Amer) 31.0 Est GFR (Non-Af Amer) 26.7 BUN/Creatinine Ratio 9.8 L (10-20) Glucose 134 H (70-99) mg/dl Calcium 9.5 (8.5-10.1) mg/dl Magnesium 2.2 (1.8-2.4) mg/dl Total Bilirubin 1.0 (0.2-1) mg/dl AST 35 (15-37) U/L ALT 53 (12-78) U/L Alkaline Phosphatase 107 (45-117) U/L Total Creatine Kinase 90 (39-308) U/L CK-MB (CK-2) 1.5 (0.5-3.6) ng/ml CK/CKMB % Calc 1.7 (0-3.0) Troponin I 0.207 H* (0-0.045) ng/ml NT-Pro-B Natriuret Pep 1170 (0-1800) pg/ml Total Protein 8.1 (6.4-8.2) gm/dl Albumin 4.4 (3.4-5.0) gm/dl Globulin 3.7 (2.5-4.0) gm/dl Albumin/Globulin Ratio 1.2 (0.9-2) Lipase 186 (73-393) U/L Imaging Data Radiologist's Impression: Radiology results as stated below per my review and the radiologist's interpretation: CT head/brain wo con CLINICAL HISTORY: Syncope. Patient on blood thinners. COMPARISON STUDY: No previous studies for comparison. TECHNIQUE: Axial CT of the brain is performed from the vertex to the skull base. IV contrast was not administered for this examination. A dose lowering technique was utilized adhering to the principles of ALARA. CT DOSE: FINDINGS: No intra or extra-axial mass lesions are visualized. There is no CT evidence of acute cortical infarction. There is no evidence of midline shift. There is no acute hemorrhage. No calvarial fractures are visualized. There are minimal white matter hypodensities likely on a small vessel basis. There is no hydrocephalus. There is ventricular asymmetry which is likely developmental. There is prominent bifrontal extra-axial space likely secondary to volume loss. There is a prominent cisterna magna. There is no evidence of acute sinusitis. There is a right frontal scalp contusion. IMPRESSION: 1. Right frontal scalp contusion 2. No acute intracranial findings. Electronically signed by: Chip Ferro M.D. 05/17/2019 7:[address] OF THE CERVICAL SPINE CLINICAL HISTORY: Neck pain status post trauma COMPARISON STUDY: No previous studies for comparison. CT DOSE: TECHNIQUE: CT scan of the cervical spine was performed from the skull base to the thoracic inlet. Images are reviewed in the axial, sagittal, and coronal planes. IV contrast was not administered for this examination. A dose lowering technique was utilized adhering to the principles of ALARA. FINDINGS: The visualized portions of the lung apices reveal no evidence of pneumothorax. Intravascular gas is likely iatrogenic The prevertebral soft tissues are normal. No fractures or subluxations are visualized. There are multilevel degenerative changes. There are exuberant lower cervical anterior osteophytes. IMPRESSION: No evidence of acute fracture or traumatic subluxation. Electronically signed by: Chip Ferro M.D. 05/17/2019 8:[address] chest wo con CLINICAL HISTORY: Chest pain status post trauma COMPARISON STUDY: No previous studies for comparison. CT DOSE: 1525.67 mGy.cm TECHNIQUE: CT of the thorax was performed from the thoracic inlet to the lung bases. Images are reviewed in the axial, sagittal, and coronal planes. IV contrast was not administered for this examination. A dose lowering technique was utilized adhering to the principles of ALARA. FINDINGS: Thyroid: Imaged portions of the thyroid gland are normal in appearance. Thoracic aorta: The ascending thoracic aorta measures 37 mm. Heart: The heart is mildly enlarged. There are coronary artery calcifications. There is no pericardial effusion. Lungs and pleural spaces: There is no pneumothorax. There are dependent atelectatic changes. There is scattered interstitial opacities, likely chronic. There is a 5.5 mm left upper lobe pulmonary nodule. There is a 4 mm right middle lobe pulmonary nodule. There are multiple scattered micronodules. There are no significant pleural effusions Mediastinum: There is no evidence of pathologic mediastinal lymphadenopathy [place]: There is no evidence of pathologic hilar adenopathy given the limitations of noncontrast study Axilla: There is no evidence of pathologic axillary lymphadenopathy Upper abdomen: There is bilateral renal atrophy. Skeletal structures: No destructive lesions are visualized. 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 No evidence of acute intrathoracic injury 2. 5.5 mm left upper lobe pulmonary nodule. In a high-risk patient, a 12 month follow-up is optional. Electronically signed by: Chip Ferro M.D. 05/17/2019 7:[address] thoracic spine wo con CT DOSE: CLINICAL HISTORY: Back pain status post trauma TECHNIQUE: Helical images were acquired in the transverse plane. Sagittal coronal reformatted images were acquired. A dose lowering technique was utilized adhering to the principles of ALARA. COMPARISON STUDY: None. FINDINGS: There is a 5.8 mm left upper lobe pulmonary nodule. In a high-risk patient, 12 month follow-up is optional. There are dependent atelectatic changes. There are multiple scattered micronodules. No paraspinal hemorrhage is visualized. There is no evidence of acute fracture. No subluxations are visualized. 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 IMPRESSION: 1. 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 No acute fractures or traumatic subluxations 4. 5.8 mm left upper lobe pulmonary nodule Electronically signed by: Chip Ferro M.D. 05/17/2019 8:08 PM ECG Data Attestation: I personally reviewed and interpreted this ECG as follows: Indication: + chest pain Rate (beats per minute): 54 Rhythm: + sinus bradycardia ECG Intervals/blocks: + Prolonged QT (519) ECG [place]: + Normal ECG ST segments: no ST depression and no ST elevation Blood Pressure Blood Pressure Findings: Elevated blood pressure Blood Pressure Disposition: further management by hospitalist [facility] Narrative This is a 78-year-old male who presents emergency department over concerns that he passed out this evening. Patient is a patient of a video effects editor in the [place] area named Dr. linn. [facility] In addition the patient's pacemaker went off earlier this week. We attempted to interrogate the patient's defibrillator without success here in the emergency department. I also attempted to obtain records from Dr. linn's office without success as well as the [facility] in [place] without success. The patient's lacerations to his face was fixed as above. Patient was found to have an elevation in his troponin. \He was sent for CAT scan of the head as well as chest which does not show any acute process. He was found to have a elevation in his troponin therefore I did discuss the case with the hospitalist service who did agree to admit the patient. Impression & Plan Elevated troponin I level, Syncope, Laceration, Chronic anticoagulation, Ventricular fibrillation Discharge Plan Visit Data *Final* Discharge Date/Time: 05/17/19 23:12 Chief Complaint: Syncope Stated Complaint: FALL ED Provider: Wong Dukes Discharge Problem: Elevated troponin I level, Syncope, Laceration, Chronic anticoagulation, Ventricular fibrillation Patient Disposition: Admitted As Inpatient Discharge Instructions Interventions: ED Discharge Assessment Last Done: 05/17/19 23:12 Discharge Problem: Syncope Qualifiers: Syncope type: unspecified Qualified Code(s): R55 - Syncope and collapse The scribe's documentation has been prepared under my direction and personally reviewed by me in its entirety. I confirm that the note above accurately reflects all work, treatment, procedures, and medical decision making performed by me.
[2019-05-19 04:19] LABS: Basophils # (auto) 0.01 K/uL (0-0.2); Basophils % (auto) 0.2 %; Eosinophils # (auto) 0.09 K/uL (0-0.5); Eosinophils % (auto) 2.2 %; Hemoglobin 13.3 g/dL (14.0-18.0); Immature Granulocytes # (auto) 0.01 K/uL (0.00-0.02); Immature Granulocytes % (auto) 0.2 %; Mean Corpuscular Hemoglobin 34.7 pg (25-34); Mean Corpuscular Hgb Conc 34.1 g/dL (32-36); Mean Corpuscular Volume 101.8 fL (80-100); Mean Platelet Volume 10.3 fL (7.4-10.4); Monocytes # (auto) 0.48 K/uL (0.11-0.59); Monocytes % (auto) 11.8 %; Neutrophils # (auto) 2.39 K/uL (1.4-6.5); Neutrophils % (auto) 58.6 %; Platelet Count 119 K/uL (130-400); RDW Coefficient of Variation 12.7 % (11.5-14.5); RDW Standard Deviation 47.2 fL (36.4-46.3); Red Blood Count 3.83 M/uL (4.7-6.1); White Blood Count 4.08 K/uL (4.8-10.8)
[2019-05-19 04:35] LABS: BUN Creatinine Ratio 10.2 (10-20); Calcium 8.4 mg/dl (8.5-10.1); Est GFR (African American) 40.3; Est GFR (Non-African American) 34.8; Potassium 3.9 mmol/L (3.5-5.1)
[2019-05-19 04:44] LABS: Partial Thromboplastin Ratio 2.7
[2019-05-19 04:46] LABS: Partial Thromboplastin Time 72.9 Seconds (21.0-31.0)
[2019-05-19] MEDS: SACUBITRIL-VALSARTAN 24-26 MG TAB PO SCH ×2 (08:23→21:09)
[2019-05-19] MEDS: OMEGA-3 (PURIFIED FISH OIL) 1 GM CAP PO SCH (08:23)
[2019-05-19] MEDS: POTASSIUM CHLORIDE 20 MEQ TABCR PO SCH (08:23)
[2019-05-19] MEDS: FOLIC ACID 1 MG TAB PO SCH (08:23)
[2019-05-19] MEDS: RANOLAZINE 500 MG ER TAB PO SCH ×2 (08:23→21:10)
[2019-05-19] MEDS: VITAMIN B COMPLEX TAB PO SCH (08:23)
[2019-05-19] MEDS: ISOSORBIDE DINITRATE 20 MG TAB PO SCH ×2 (08:24→13:06)
[2019-05-19] MEDS: CYANOCOBALAMIN 500 MCG TABLET (VITAMIN B-12) PO SCH (08:24)
[2019-05-19] MEDS: ASCORBIC ACID 500 MG TAB PO SCH (08:24)
[2019-05-19] MEDS: PANTOprazole 40 MG TAB PO SCH (08:24)
[2019-05-19] MEDS: CHOLECALCIFEROL 1,000 UNITS TAB PO SCH (08:24)
[2019-05-19] MEDS: MEXILETINE HCL 150 MG CAPSULE PO SCH ×3 (08:25→21:09)
--- NOTE | 2019-05-19 10:12 | Hospitalist Progress Note ---
Date of Service May 19, 2019 Assessment & Plan (1) Bradycardia: HR in the 40's at rest, was in the 30's when sleeping unsure of why he does not have pacemaker with ICD plan for pacemaker on Monday with EP hold metoprolol, will use Mexilitine for time being to prevent vfib will hold Eliquis, place on Heparin drip (stop in the morning tomorrow) (2) Syncope: Likely secondary to acute blood pressure drop with use of nitroglycerin sublingual x3. will keep on monitor, HR in the 40's at baseline had ICD fire 5 days ago for ventricular fibrillation Dr. Perkins to see tomorrow for pacemaker would prefer to use Amiodarone but with HR in the 30's, using Mexilitine until he gets pacemaker troponin 0.2 for three sets, no signs of ACS (3) Elevated troponin I level: Elevated troponin I level/CAD/hypertension/CHF/history of CABG- had some chest pain that resolved quickly after SL Nitro troponin 0.2 x 3 sets, no rise and fall check echo, EF is 35%, global hypokinesis cardiology following (4) CAD (coronary artery disease), [place] coronary artery: aspirin, statin therapy requesting old records (5) CHF (congestive heart failure): examines euvolemic chronic systolic heart failure, EF is 35%, global hypokinesis resume Lasix (6) Hypertension: BP low normal holding metoprolol, hydralazine resume Lasix given his EF of 35% (7) Status post aorto-coronary artery bypass graft: [facility] (8) Chronic anticoagulation: hold Eliquis, change to heparin drip in anticipation of pacemaker (9) Hyperlipidemia LDL goal <70: Continue atorvastatin 40 mg at bedtime. Check a fasting lipid panel (10) GERD (gastroesophageal reflux disease): Change omeprazole to pantoprazole (11) B12 deficiency: Continue 1000 mcg p.o. daily supplement Subjective patient feeling well, no issues the past 24 hours no syncope or presyncope no arrhythmias on monitor d/w Dr. Clay, continue on Mexiletine tentatively plan for pacemaker tomorrow labs reviewed, CBC stable, cr down slightly at 1.8 (unsure of baseline) on heparin drip so it can be stopped tomorrow Review of Systems Review of Systems: All systems reviewed & are unremarkable except as noted in HPI & below Constitutional: no fever, no chills, no sweats and no weakness Respiratory: no cough and no dyspnea Cardiovascular: no chest pain, no palpitations, no syncope and no edema Gastrointestinal: no abdominal pain, no nausea, no vomiting, no constipation and no diarrhea/loose stools Physical Exam Constitutional: WD/WN, vitals as above Eyes: PERRL, conjunctivae normal, anicteric sclerae ENMT: external ear and nose normal, oropharynx normal Neck: trachea midline, no thyromegaly Respiratory: normal respiratory effort, lungs clear to auscultation Cardiovascular: Rate/Rhythm: regular rhythm and + bradycardic Heart Sounds: normal S1 and normal S2; no murmur Vessels: no JVD Extremities: normal capillary refill; no edema Gastrointestinal (Abdomen): normal bowel sounds, soft, nontender, no hepatosplenomegaly Musculoskeletal: no cyanosis or clubbing, extremities motor strength 5/5 Skin: no rashes, warm and dry Neurologic: patellar DTR's 2+ bilat, sensation intact and PERRL, EOMI, accommodation nl, no face palsy, no dysarthria Psychiatric: A+Ox3, euthymic affect Lymphatic: no cervical or axillary lymphadenopathy Results & Data Vital Signs (Past 12 Hours) Vital Signs Temp Pulse Pulse Resp BP Pulse Ox 05/19/19 07:27 36.6 C 40 L 16 118/55 L 96 05/19/19 04:00 36.6 C 39 L 16 100/48 L 96 05/19/19 02:19 39 L 05/18/19 23:45 36.9 C 41 L 18 109/49 L 95 Laboratory Results Laboratory Results - last 24 hr 05/18/19 05/18/19 05/18/19 10:18 10:18 21:31 WBC RBC Hgb Hct MCV MCH MCHC RDW Std Deviation RDW Coeff of Sandie Plt Count MPV Immature Gran % (Auto) Neut % (Auto) Lymph % (Auto) [place] % (Auto) Eos % (Auto) Baso % (Auto) Immature Gran # (Auto) Neut # (Auto) Lymph # (Auto) [place] # (Auto) Eos # (Auto) Baso # (Auto) PT 11.8 INR 1.2 H APTT 27.2 PTT Ratio 1.0 Sodium Potassium Chloride Carbon Dioxide Anion Gap BUN Creatinine Est Cr Clr Drug Dosing Est GFR ( Amer) Est GFR (Non-Af Amer) BUN/Creatinine Ratio Glucose Calcium Troponin I 0.266 H* TSH 3.050 05/19/19 05/19/19 05/19/19 04:00 04:00 04:00 WBC 4.08 L RBC 3.83 L Hgb 13.3 L Hct 39.0 L MCV 101.8 H MCH 34.7 H MCHC 34.1 RDW Std Deviation 47.2 H RDW Coeff of Sandie 12.7 Plt Count 119 L MPV 10.3 Immature Gran % (Auto) 0.2 Neut % (Auto) 58.6 Lymph % (Auto) 27.0 [place] % (Auto) 11.8 Eos % (Auto) 2.2 Baso % (Auto) 0.2 Immature Gran # (Auto) 0.01 Neut # (Auto) 2.39 Lymph # (Auto) 1.10 L [place] # (Auto) 0.48 Eos # (Auto) 0.09 Baso # (Auto) 0.01 PT INR APTT 72.9 H* PTT Ratio 2.7 Sodium 139 Potassium 3.9 Chloride 105 Carbon Dioxide 30 Anion Gap 4.0 BUN 18 Creatinine 1.81 H Est Cr Clr Drug Dosing 32.0 Est GFR ( Amer) 40.3 Est GFR (Non-Af Amer) 34.8 BUN/Creatinine Ratio 10.2 Glucose 107 H Calcium 8.4 L Troponin I TSH Medications Administered Current Inpatient Medications Acetaminophen (Tylenol) 650 mg PO Q4H PRN PRN Reason: Pain or Fever Stop: 06/16/19 23:55 Al Hydrox/Mg Hydrox/Simethicone (Maalox) 15 ml PO Q4H PRN PRN Reason: Dyspepsia Stop: 06/16/19 23:55 Apixaban (Eliquis) 5 mg PO BID [facility] Stop: 06/16/19 23:55 Last Admin: 05/18/19 08:40 Dose: 5 mg Documented by: Ascorbic Acid (Vitamin C) 2,000 mg PO QAM [facility] Stop: 06/17/19 08:59 Last Admin: 05/19/19 08:24 Dose: 2,000 mg Documented by: Aspirin (Ecotrin Ectab) 81 mg PO HS [facility] Stop: 06/17/19 20:59 Last Admin: 05/18/19 22:01 Dose: 81 mg Documented by: Atorvastatin Calcium (Lipitor) 40 mg PO HS [facility] Stop: 06/17/19 20:59 Last Admin: 05/18/19 21:08 Dose: 40 mg Documented by: Cyanocobalamin (Vitamin B-12) 1,000 mcg PO QAM [facility] Stop: 06/17/19 08:59 Last Admin: 05/19/19 08:24 Dose: 1,000 mcg Documented by: Fish Oil ([place]-3 (Purified Fish Oil)) 2 gm PO QAM [facility] Stop: 06/17/19 08:59 Last Admin: 05/19/19 08:23 Dose: 2 gm Documented by: Folic Acid (Folvite) 1 mg PO QAM [facility] Stop: 06/17/19 08:59 Last Admin: 05/19/19 08:23 Dose: 1 mg Documented by: [facility] ([facility]) [facility] Stop: 06/17/19 08:59 Hydralazine HCl (Apresoline) 30 mg PO TID [facility] Stop: 06/17/19 08:59 Heparin Sodium/Dextrose (Heparin Sodium/Dextrose) 25,000 units in 500 mls @ 25 mls/hr IV .Q20H [facility]; Protocol Stop: 06/17/19 20:59 Last Titration: 05/19/19 07:19 Dose: 1,250 units/hr, 25 mls/hr Documented by: Isosorbide Dinitrate (Isordil) 20 mg PO BID@0700,1200 [facility] Stop: 06/17/19 06:59 Last Admin: 05/19/19 08:24 Dose: 20 mg Documented by: Magnesium Hydroxide (Milk Of Magnesia) 30 ml PO Q12H PRN PRN Reason: Constipation Stop: 06/16/19 23:55 Metoprolol Succinate (Toprol Xl) 25 mg PO QAM [facility] Stop: 06/17/19 08:59 Last Admin: 05/18/19 08:41 Dose: 25 mg Documented by: Mexiletine HCl (Mexitil) 150 mg PO TID [facility] Stop: 06/17/19 20:59 Last Admin: 05/19/19 08:25 Dose: 150 mg Documented by: Morphine Sulfate (Morphine Sulfate) 2 mg IV Q30M PRN PRN Reason: Chest Pain Stop: 05/31/19 23:55 Nitroglycerin (Nitro-Bid 2%) 1 inch EXT Q6H [facility] Stop: 06/16/19 18:44 Last Admin: 05/18/19 13:10 Dose: Not Given Documented by: Nitroglycerin (Nitrostat) 0.4 mg SL UD PRN PRN Reason: Chest Pain Stop: 06/16/19 23:55 Ondansetron HCl (Zofran) 4 mg IV Q6H PRN PRN Reason: Nausea Stop: 06/16/19 23:55 Pantoprazole Sodium (Protonix) 40 mg PO QAM [facility] Stop: 06/17/19 08:59 Last Admin: 05/19/19 08:24 Dose: 40 mg Documented by: Potassium Chloride (Klor-Con M20) 20 meq PO QAM [facility] Stop: 06/17/19 08:59 Last Admin: 05/19/19 08:23 Dose: 20 meq Documented by: Ranolazine (Ranexa) 500 mg PO BID [facility] Stop: 06/16/19 23:55 Last Admin: 05/19/19 08:23 Dose: 500 mg Documented by: Sacubitril/Valsartan (Entresto 24/26mg) 1 tab PO BID [facility] Stop: 06/17/19 08:59 Last Admin: 05/19/19 08:23 Dose: 1 tab Documented by: Vitamin B Complex (Vitamin B Complex) 1 tab PO QAM [facility] Stop: 06/17/19 08:59 Last Admin: 05/19/19 08:23 Dose: 1 tab Documented by: Vitamin D (Vitamin D3) 5,000 units PO [facility] Stop: 06/17/19 08:59 Last Admin: 05/19/19 08:24 Dose: 5,000 units Documented by: PG Care Time/CCT Total # of Minutes Spent Total Time Spent with Patient: Total time spent is greater than 50% in coordination of care (as documented) at patient's floor/unit and/or counseling patient: (1) Syncope Syncope type: unspecified Qualified Code(s): R55 - Syncope and collapse
--- NOTE | 2019-05-19 10:31 | Cardiology Progress Note ---
Date of Service May 19, 2019 Assessment & Plan (1) Ventricular fibrillation: (2) S/P ICD (internal cardiac defibrillator) procedure: (3) CAD (coronary artery disease), [place] coronary artery: (4) Chronic systolic CHF (congestive heart failure): (5) Cardiomyopathy: (6) Bradycardia: (7) Status post aorto-coronary artery bypass graft: (8) Elevated troponin: ASSESSMENT/PLAN: 1. Ventricular fibrillation s/p ICD shock: 2 episodes of ventricular fibrillation in the past week treated successfully with ICD shock. Apparently had similar issues this past summer and even late last winter. Records are requested from several other facilities, but still pending. Has already had i schemic evaluation with cardiac catheterization with these issues earlier this year. No anginal symptoms other than some chest discomfort after he already become symptomatic with dizziness/fuzziness. Amiodarone and beta-paul discontinued for now due to profound bradycardia. Mexiletine 150 mg 3 times daily has been ordered and he is agreeable to take it for now. Dr. Perkins of electrophysiology will evaluate him tomorrow for definitive treatment and possible pacemaker so that he can be more aggressively treated for his ventricular arrhythmia. 2. CAD status post CABG: He did not present with acute coronary syndrome. Elevated troponins likely due to ischemia during ventricular fibrillation. Cannot rule out primary ischemia as the cause of his arrhythmia and therefore records requested as above. No indication for urgent cardiac catheterization. Recommend continuation of aspirin 81 mg daily. Holding beta-paul as above due to profound bradycardia. Continue high-intensity statin therapy. 3. Cardiomyopathy: Moderately to severely reduced systolic function. He appears euvolemic currently. Continue Entresto as tolerated. Holding beta- paul as above. Defibrillator in place. 4. Chronic systolic CHF: He appears euvolemic. Asymptomatic. Can continue home dose of diuretic. 5. CKD: He reports having a creatinine in the 2 range this past summer and before that, creatinine was just below 2. Creatinine improved over the past day. 6. Elevated troponin: Likely due to ischemia from ventricular arrhythmia as noted above. 7. Sinus bradycardia: Beta-paul and amiodarone have been discontinued. He was only taking metoprolol succinate 25 mg for 1 day and prior to that 12.5 mg. Given his systolic CHF and ventricular arrhythmia, would like to treat with hi gher doses of beta-paul, and possibly amiodarone but given profound bradycardia, these medications have been held. Dr. Perkins will see him tomorrow for consideration of pacemaker placement. Patient is currently agreeable. NPO after midnight. Eliquis last dose was 05/18/2019 morning. 8. Anticoagulation: Indication for anticoagulation is not well known at this time. Records have been requested and are not yet available. For now, he is on heparin drip while Eliquis is being held. When asked why he was on Eliquis, he also did not recall atrial fibrillation/flutter or thrombus. 9. Disposition: Cardiology will continue to follow. Dr. Perkins electrophysiology will see him tomorrow. Plan of care discussed with Dr. Cueto of the primary hospitalist service. Please call with any other questions or concerns. Subjective He denies chest pain, shortness of breath, syncope, near-syncope, palpitations, edema, or bleeding. His heart rate has been 30s to 40s but he is asymptomatic while sitting in bed. We discussed tentative plan for possible pacemaker tomorrow. He was initially unsure about this but then was willing to have it done. We discussed that he will be evaluated tomorrow by Dr. Perkins of electrophysiology prior to the procedure to discuss risks and benefits. Dr. Perkins at that time will decide formal plan moving forward. We also discussed the fact that metoprolol and amiodarone have been discontinued during this hospital stay due to profound bradycardia. Mexiletine has been initiated. He states that he did take mexiletine for short period of time but did not tolerated due to GI upset. He refused last evening's dose but did take it this morning and has tolerated it so far. He states that he was told by a doctor (non director of campus recreation[place] 1 [place] that mexiletine is a bad drug. We discussed the fact that ventricular fibrillation is very dangerous and typically fatal and that we are currently trying to find a treatment to help reduce the risk of further ventricular arrhythmia. Once the pacemaker is placed, we discussed the fact that amiodarone and metoprolol succinate can be restarted but that definitive treatment will be outlined by electrophysiology at that point. He said that he is willing to take mexiletine for now. He was alone in his hospital room this morning. Review of systems: As above. Physical Exam Physical Exam: Gen.: No acute distress. Alert and oriented. HEENT: Anicteric sclera. Neck: No JVD. Cardiac: Regular and bradycardic near 40 bpm. Normal S1-S2. 1/6 systolic murmur. No rubs, or gallops. Pulmonary: Clear to auscultation bilaterally without wheezes, rales, or rhonchi. Abdomen: Soft, nontender, nondistended, with normoactive bowel sounds. No bruits noted. Extremities: 2+ radial pulses bilaterally. 1+ posterior tibialis pulses bilate rally. No significant pitting edema or cyanosis. No palpable cords. Psychiatric: Affect appears appropriate. Results & Data Vital Signs (Past 12 Hours) Vital Signs Temp Pulse Pulse Resp BP Pulse Ox 05/19/19 07:27 36.6 C 40 L 16 118/55 L 96 05/19/19 04:00 36.6 C 39 L 16 100/48 L 96 05/19/19 02:19 39 L 05/18/19 23:45 36.9 C 41 L 18 109/49 L 95 Laboratory Results Laboratory Results - last 24 hr 05/18/19 05/18/19 05/18/19 10:18 10:18 21:31 WBC RBC Hgb Hct MCV MCH MCHC RDW Std Deviation RDW Coeff of Sandie Plt Count MPV Immature Gran % (Auto) Neut % (Auto) Lymph % (Auto) [place] % (Auto) Eos % (Auto) Baso % (Auto) Immature Gran # (Auto) Neut # (Auto) Lymph # (Auto) [place] # (Auto) Eos # (Auto) Baso # (Auto) PT 11.8 INR 1.2 H APTT 27.2 PTT Ratio 1.0 Sodium Potassium Chloride Carbon Dioxide Anion Gap BUN Creatinine Est Cr Clr Drug Dosing Est GFR ( Amer) Est GFR (Non-Af Amer) BUN/Creatinine Ratio Glucose Calcium Troponin I 0.266 H* TSH 3.050 05/19/19 05/19/19 05/19/19 04:00 04:00 04:00 WBC 4.08 L RBC 3.83 L Hgb 13.3 L Hct 39.0 L MCV 101.8 H MCH 34.7 H MCHC 34.1 RDW Std Deviation 47.2 H RDW Coeff of Sandie 12.7 Plt Count 119 L MPV 10.3 Immature Gran % (Auto) 0.2 Neut % (Auto) 58.6 Lymph % (Auto) 27.0 [place] % (Auto) 11.8 Eos % (Auto) 2.2 Baso % (Auto) 0.2 Immature Gran # (Auto) 0.01 Neut # (Auto) 2.39 Lymph # (Auto) 1.10 L [place] # (Auto) 0.48 Eos # (Auto) 0.09 Baso # (Auto) 0.01 PT INR APTT 72.9 H* PTT Ratio 2.7 Sodium 139 Potassium 3.9 Chloride 105 Carbon Dioxide 30 Anion Gap 4.0 BUN 18 Creatinine 1.81 H Est Cr Clr Drug Dosing 32.0 Est GFR ( Amer) 40.3 Est GFR (Non-Af Amer) 34.8 BUN/Creatinine Ratio 10.2 Glucose 107 H Calcium 8.4 L Troponin I TSH Diagnostic Findings Telemetry personally reviewed: Sinus bradycardia with heart rates in the 30s to 40s. No ventricular arrhythmia. Echo 05/18/2019: Moderately dilated LV with moderately to severely reduced systolic function. EF 30-35%. Akinesis of the inferolateral and basal inferior wall segments. Otherwise, global hypokinesis. Septal motion consistent with prior cardiac surgery. Moderate LVH. Mild left atrial dilation. Dilated right atrium. Sclerotic aortic valve. Possible moderate MR. RVSP 24. Outside records have been requested but are not yet available for review. Medications Administered Current Inpatient Medications Acetaminophen (Tylenol) 650 mg PO Q4H PRN PRN Reason: Pain or Fever Stop: 06/16/19 23:55 Al Hydrox/Mg Hydrox/Simethicone (Maalox) 15 ml PO Q4H PRN PRN Reason: Dyspepsia Stop: 06/16/19 23:55 Apixaban (Eliquis) 5 mg PO BID [facility] Stop: 06/16/19 23:55 Last Admin: 05/18/19 08:40 Dose: 5 mg Documented by: Ascorbic Acid (Vitamin C) 2,000 mg PO QAM [facility] Stop: 06/17/19 08:59 Last Admin: 05/19/19 08:24 Dose: 2,000 mg Documented by: Aspirin (Ecotrin Ectab) 81 mg PO HS [facility] Stop: 06/17/19 20:59 Last Admin: 05/18/19 22:01 Dose: 81 mg Documented by: Atorvastatin Calcium (Lipitor) 40 mg PO HS [facility] Stop: 06/17/19 20:59 Last Admin: 05/18/19 21:08 Dose: 40 mg Documented by: Cyanocobalamin (Vitamin B-12) 1,000 mcg PO QAM [facility] Stop: 06/17/19 08:59 Last Admin: 05/19/19 08:24 Dose: 1,000 mcg Documented by: Fish Oil ([place]-3 (Purified Fish Oil)) 2 gm PO QAM [facility] Stop: 06/17/19 08:59 Last Admin: 05/19/19 08:23 Dose: 2 gm Documented by: Folic Acid (Folvite) 1 mg PO QAM [facility] Stop: 06/17/19 08:59 Last Admin: 05/19/19 08:23 Dose: 1 mg Documented by: Furosemide (Lasix) 20 mg PO QAM [facility] Stop: 06/17/19 08:59 Hydralazine HCl (Apresoline) 30 mg PO TID [facility] Stop: 06/17/19 08:59 Heparin Sodium/Dextrose (Heparin Sodium/Dextrose) 25,000 units in 500 mls @ 25 mls/hr IV .Q20H [facility]; Protocol Stop: 06/17/19 20:59 Last Titration: 05/19/19 07:19 Dose: 1,250 units/hr, 25 mls/hr Documented by: Isosorbide Dinitrate (Isordil) 20 mg PO BID@0700,1200 [facility] Stop: 06/17/19 06:59 Last Admin: 05/19/19 08:24 Dose: 20 mg Documented by: Magnesium Hydroxide (Milk Of Magnesia) 30 ml PO Q12H PRN PRN Reason: Constipation Stop: 06/16/19 23:55 Metoprolol Succinate ([facility] Xl) [facility] Stop: 06/17/19 08:59 Last Admin: 05/18/19 08:41 Dose: 25 mg Documented by: Mexiletine HCl (Mexitil) 150 mg PO TID [facility] Stop: 06/17/19 20:59 Last Admin: 05/19/19 08:25 Dose: 150 mg Documented by: Morphine Sulfate (Morphine Sulfate) 2 mg IV Q30M PRN PRN Reason: Chest Pain Stop: 05/31/19 23:55 Nitroglycerin (Nitro-Bid 2%) 1 inch EXT Q6H [facility] Stop: 06/16/19 18:44 Last Admin: 05/18/19 13:10 Dose: Not Given Documented by: Nitroglycerin (Nitrostat) 0.4 mg SL UD PRN PRN Reason: Chest Pain Stop: 06/16/19 23:55 Ondansetron HCl (Zofran) 4 mg IV Q6H PRN PRN Reason: Nausea Stop: 06/16/19 23:55 Pantoprazole Sodium (Protonix) [facility] [place] Stop: 06/17/19 08:59 Last Admin: 05/19/19 08:24 Dose: 40 mg Documented by: Potassium Chloride (Klor-Con M20) 20 meq PO QAM [facility] Stop: 06/17/19 08:59 Last Admin: 05/19/19 08:23 Dose: 20 meq Documented by: Ranolazine (Ranexa) 500 mg PO BID [facility] Stop: 06/16/19 23:55 Last Admin: 05/19/19 08:23 Dose: 500 mg Documented by: Sacubitril/Valsartan (Entresto 24/26mg) 1 tab PO BID [facility] Stop: 06/17/19 08:59 Last Admin: 05/19/19 08:23 Dose: 1 tab Documented by: Vitamin B Complex (Vitamin B Complex) [facility] [place] Stop: 06/17/19 08:59 Last Admin: 05/19/19 08:23 Dose: 1 tab Documented by: Vitamin D (Vitamin D3) 5,000 units PO [facility] Stop: 06/17/19 08:59 Last Admin: 05/19/19 08:24 Dose: 5,000 units Documented by: PG Care Time/CCT Total # of Minutes Spent Total Time Spent with Patient: Total time spent is greater than 50% in coordination of care (as documented) at patient's floor/unit and/or counseling patient:
[2019-05-19 11:20] LABS: Partial Thromboplastin Ratio 2.3
[2019-05-19] MEDS ORDERED: PROMETHAZINE HCL 12.5 MG in SODIUM CHLORIDE 0.9% 50 ML IV STA (16:41)
[2019-05-19] MEDS: HEPARIN SODIUM/DEXTROSE 25,000 UNITS/500 ML BAG IV SCH (17:18)
[2019-05-19] MEDS: ATORVASTATIN 40 MG TAB PO SCH (21:09)
[2019-05-19] MEDS: ASPIRIN 81 MG ECTAB PO SCH (21:10)
[2019-05-20 06:36] LABS: Basophils # (auto) 0.01 K/uL (0-0.2); Basophils % (auto) 0.3 %; Eosinophils # (auto) 0.09 K/uL (0-0.5); Eosinophils % (auto) 2.4 %; Hematocrit (blood only) 39.5 % (42-52); Hemoglobin 13.8 g/dL (14.0-18.0); Immature Granulocytes # (auto) 0.01 K/uL (0.00-0.02); Immature Granulocytes % (auto) 0.3 %; Lymphocytes # (auto) 0.81 K/uL (1.2-3.4); Lymphocytes % (auto) 21.3 %; Mean Corpuscular Hemoglobin 35.3 pg (25-34); Mean Corpuscular Hgb Conc 34.9 g/dL (32-36); Mean Platelet Volume 10.3 fL (7.4-10.4); Monocytes # (auto) 0.57 K/uL (0.11-0.59); Neutrophils # (auto) 2.32 K/uL (1.4-6.5); Neutrophils % (auto) 60.7 %; Platelet Count 110 K/uL (130-400); RDW Coefficient of Variation 12.9 % (11.5-14.5); RDW Standard Deviation 46.6 fL (36.4-46.3); Red Blood Count 3.91 M/uL (4.7-6.1); White Blood Count 3.81 K/uL (4.8-10.8)
[2019-05-20 06:55] LABS: Partial Thromboplastin Ratio 3.1
[2019-05-20 06:59] LABS: Partial Thromboplastin Time 83.4 Seconds (21.0-31.0)
[2019-05-20] MEDS: CHOLECALCIFEROL 1,000 UNITS TAB PO SCH (08:05)
[2019-05-20] MEDS: SACUBITRIL-VALSARTAN 24-26 MG TAB PO SCH ×2 (08:05→20:57)
[2019-05-20] MEDS: ASCORBIC ACID 500 MG TAB PO SCH (08:06)
[2019-05-20] MEDS: PANTOprazole 40 MG TAB PO SCH (08:06)
[2019-05-20] MEDS: POTASSIUM CHLORIDE 20 MEQ TABCR PO SCH (08:06)
[2019-05-20] MEDS: ISOSORBIDE DINITRATE 20 MG TAB PO SCH ×2 (08:06→13:20)
[2019-05-20] MEDS: FOLIC ACID 1 MG TAB PO SCH (08:06)
[2019-05-20] MEDS: CYANOCOBALAMIN 500 MCG TABLET (VITAMIN B-12) PO SCH (08:07)
[2019-05-20] MEDS: RANOLAZINE 500 MG ER TAB PO SCH ×2 (08:07→20:57)
[2019-05-20] MEDS: MEXILETINE HCL 150 MG CAPSULE PO SCH ×2 (08:07→17:04)
[2019-05-20] MEDS: OMEGA-3 (PURIFIED FISH OIL) 1 GM CAP PO SCH (08:07)
[2019-05-20] MEDS: VITAMIN B COMPLEX TAB PO SCH (08:07)
[2019-05-20] MEDS: FUROSEMIDE 20 MG TAB PO SCH (10:21)
--- NOTE | 2019-05-20 10:59 | Hospitalist Progress Note ---
Date of Service May 20, 2019 Assessment & Plan (1) Bradycardia: HR in the 30-40's on tele unsure of why he does not have pacemaker with ICD plan for pacemaker on Monday with EP-awaiting this today -continue to hold metoprolol -continue Mexilitine for time being to prevent vfib -continue to hold Eliquis-unclear why on this but may be for previous low EF 20% on otside records to prevent LV thomrbus? -on Heparin drip for now and stopped today for procedure (2) Syncope: -Likely secondary to acute blood pressure drop with use of nitroglycerin sublingual x3. -will keep on monitor, HR in the 30-40's at baseline -had ICD fire 5 days prior to admission for ventricular fibrillation -Dr. Perkins on consult -would prefer to use Amiodarone but with HR in the 30's, using Mexilitine until he gets pacemaker troponin 0.2 for three sets, no signs of ACS (3) Elevated troponin I level: Elevated troponin I level/CAD/hypertension/CHF/history of CABG- had some chest pain that resolved quickly after SL Nitro prior to admission ECG no acute changes troponin 0.2 x 3 sets, no rise and fall check echo, EF is 35%, global hypokinesis cardiology following (4) CAD (coronary artery disease), [place] coronary artery: aspirin, statin therapy, continue isosorbide, Ranexa -metoprolol on hold had cath 10/2017-report scanned into record (5) CHF (congestive heart failure): Remains euvolemic -chronic systolic heart failure, EF is 35% here and was reportedly 20% on ECHO 10/2017, global hypokinesis -continue lasix 20mg daily -continue Entresto- watch renal function-had BERNADETTE on admission and now resolved -holding metoprolol (6) Hypertension: BP low normal holding metoprolol, hydralazine -continue Entresto, isosorbide, lasix (7) Status post aorto-coronary artery bypass graft: Obtained records from the [place]-scanned into chart (8) Chronic anticoagulation: Patient reports he was prescribed Eliquis in December 2018 by his Profiling Machine Set Up Operator Tool and he has no idea why. Review of recent records just obtained mention a h/o paroxysmal Afib that converted on amiodarone -continue to hold Eliquis, continuing heparin drip in anticipation of pacemaker (9) Hyperlipidemia LDL goal <70: Continue atorvastatin 40 mg at bedtime. (10) GERD (gastroesophageal reflux disease): Change omeprazole to pantoprazole (11) B12 deficiency: Continue 1000 mcg p.o. 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 Has no lightheadedness, no CP or SOB, not dizzy. Denies nausea or abd pains. Awaiting pacer placement today. Says he is taking Elquis since December but doesn't know why-his Profiling Machine Set Up Operator Tool advseid him to start it Tele [facility] SB rates in the 30s, VT run x 1 min Review of Systems Review of Systems: All systems reviewed & are unremarkable except as noted in HPI & below Physical Exam Constitutional: WD/WN, vitals as above Eyes: + anicteric sclerae Neck: trachea midline, no thyromegaly Respiratory: normal respiratory effort, lungs clear to auscultation Cardiovascular: Rate/Rhythm: regular rhythm and + bradycardic Heart Sounds: no murmur Extremities: no calf tenderness and no edema Gastrointestinal (Abdomen): normal bowel sounds, soft, nontender, no hepatosplenomegaly Musculoskeletal: Extremities: extremities normal to inspection; no cyanosis and no clubbing Skin: no rashes, warm and dry Neurologic: moves all extremities and awake; no focal motor deficits Psychiatric: A+Ox3, euthymic affect Results & Data Vital Signs (Past 12 Hours) Vital Signs Temp Pulse Pulse Resp BP Pulse Ox 05/20/19 08:00 41 L 05/20/19 07:35 36.6 C 39 L 18 115/51 L 96 05/20/19 04:00 36.6 C 46 L 20 115/51 L 97 05/19/19 23:33 36.9 C 46 L 18 107/46 L 96 Laboratory Results 05/20/19 05/20/19 05/19/19 Range/Units 06:13 06:13 10:38 WBC 3.81 L (4.8-10.8) K/uL RBC 3.91 L (4.7-6.1) M/uL Hgb 13.8 L (14.0-18.0) g/dL Hct 39.5 L (42-52) % MCV 101.0 H (80-100) fL MCH 35.3 H (25-34) pg MCHC 34.9 (32-36) g/dL RDW Std Deviation 46.6 H (36.4-46.3) fL RDW Coeff of Sandie 12.9 (11.5-14.5) % Plt Count 110 L (130-400) K/uL MPV 10.3 (7.4-10.4) fL Immature Gran % (Auto) 0.3 % Neut % (Auto) 60.7 % Lymph % (Auto) 21.3 % Dickson % (Auto) 15.0 % Eos % (Auto) 2.4 % Baso % (Auto) 0.3 % Immature Gran # (Auto) 0.01 (0.00-0.02) K/uL Neut # (Auto) 2.32 (1.4-6.5) K/uL Lymph # (Auto) 0.81 L (1.2-3.4) K/uL Dickson # (Auto) 0.57 (0.11-0.59) K/uL Eos # (Auto) 0.09 (0-0.5) K/uL Baso # (Auto) 0.01 (0-0.2) K/uL APTT 83.4 H* 62.0 H* (21.0-31.0) Seconds PTT Ratio 3.1 2.3 PG Care Time/CCT Total # of Minutes Spent Total Time Spent with Patient: Total time spent is greater than 50% in coordination of care (as documented) at patient's floor/unit and/or counseling patient: (1) Syncope Syncope type: unspecified Qualified Code(s): R55 - Syncope and collapse
--- NOTE | 2019-05-20 13:20 | Cardiology Progress Note ---
Date of Service May 20, 2019 Assessment & Plan (1) ICD (implantable cardioverter-defibrillator) in place: He has a [employer] epicardial defibrillator in place, this is a shock only device and cannot provide back-up bradycardia support or antitachycardia pacing for ventricular tachycardia. This device has about 1/2 to 2 years of battery life remaining. He has had frequent episodes of ventricular tachycardia or ventricular fibrillation requiring ICD shock. He has been on medications to try to control it and continues to have episodes. This device cannot be programmed to improve its efficacy. We are now at a point where we have to do something additional which is either to implant a pacemaker (this device can probably be used with a pacemaker) and as noted below a pacemaker will provide bradycardia support but not antitachycardia pacing. We can implant an intravascular defibrillator which would provide bradycardia support and antitachycardia pacing as well as defibrillation, there seems to be no vascular contraindication to doing so and I think that is by far the best option at this point. We can do that today, I would leave the epicardial system in place for now and turn it off once we have the internal defibrillator in place, and then remove it at a later date, perhaps tomorrow. I discussed the indications, procedure, risks and alternatives of dual-chamber intravascular ICD implantation with him and his son and they understand and he agrees to proceed. Consent obtained. I also discussed sedation with him and he is agreeable. We will plan on doing this procedure this afternoon. (2) Ventricular tachycardia: He has had multiple episodes of ventricular tachycardia is on amiodarone for therapy. He has continued to have episodes. Although we may be up to help somewhat with antiarrhythmic adjustments were increase in amiodarone his low heart rate is problematic and we cannot add beta blockers which may help with the ventricular tachycardia as well. One option would be to increase his heart rate, often ventricular arrhythmias are heart rate related and increasing pacemaker will often help control them. Unfortunately has not an option with his current system. My plan is to implant a standard dual-chamber ICD, increase his pacing rate, add beta-blockade and hopefully titrate to optimal doses and see if we can control his arrhythmia by these methods. The device will also be programmed for antitachycardia pacing, his arrhythmia during the night appeared to likely be amenable to antitachycardia pacing although that is difficult to predict but it was not ventricular fibrillation. I discussed all this with him and his son, this is a somewhat trial and error technique and will take some time and I may not be following him over the long run. (3) Bradycardia: He has significant bradycardia, even though he is not terribly symptomatic this is interfering with our ability to properly treat his cardiomyopathy with beta-blockade which may also help with his ventricular arrhythmia. He needs heart rate support, his current device cannot provide it and since he is in sinus rhythm a dual-chamber device should be used. We could consider a pacem brittaney but as noted above that does not specifically treat the ventricular arrhythmia and a pacing lead is different than a defibrillator lead and therefore it is problematic to put a pacemaker now and then upgrade again at a later date if we do not have control of his arrhythmia. The best option is to implant a dual-chamber ICD which will also function as a pacemaker. (4) Cardiomyopathy: He has a cardiomyopathy which may be progressive based on his echocardiogram in October (done in a different institution) and progressive cardiomyopathy may explain some of his worsening ventricular arrhythmias. He needs to be placed on optimal medical therapy to try to improve his cardiomyopathy, that includes beta-blockade. Once we have a dual-chamber ICD in place and can properly control his heart rate we can try to titrate his beta- paul. (5) CAD (coronary artery disease), [place] coronary artery: He has coronary artery disease, he has had a relatively recent catheterization that did show significant disease however nothing felt amenable to intervention and although he had slight troponin elevation now that is most consistent with demand ischemia. He needs risk factor modification for his coronary disease but I would continue to treat medically at this time. Subjective Events of his past few days reviewed, he is feeling fairly well today. He is not having chest discomfort, he is not having trouble with shortness of breath but has not been very active. He does not seem to be having side effects on his medication so far. Physical Exam Physical Exam: Constitutional: Alert, cooperative and in no distress. HEENT: Unremarkable Neck: No jugular venous distention, carotid pulses are normal and equal bilaterally without bruits. Pulmonary: Clear to auscultation bilaterally. Cardiac: Regular slow rhythm with no murmur, gallop or rub. Abdomen: Soft, nontender with normal bowel sounds. Extremities: No edema. Distal pulses intact. Neurologic: No focal findings. Gait is steady. Skin: No rash, ecchymoses or petechiae. Results & Data Vital Signs (Past 12 Hours) Vital Signs Temp Pulse Pulse Resp BP Pulse Ox 05/20/19 11:14 36.9 C 41 L 18 118/47 L 97 05/20/19 08:00 41 L 05/20/19 07:35 36.6 C 39 L 18 115/51 L 96 05/20/19 04:00 36.6 C 46 L 20 115/51 L 97 Laboratory Results Abnormal lab results 05/20/19 05/20/19 Range/Units 06:13 06:13 WBC 3.81 L (4.8-10.8) K/uL RBC 3.91 L (4.7-6.1) M/uL Hgb 13.8 L (14.0-18.0) g/dL Hct 39.5 L (42-52) % MCV 101.0 H (80-100) fL MCH 35.3 H (25-34) pg RDW Std Deviation 46.6 H (36.4-46.3) fL Plt Count 110 L (130-400) K/uL Lymph # (Auto) 0.81 L (1.2-3.4) K/uL APTT 83.4 H* (21.0-31.0) Seconds Diagnostic Findings Telemetry monitoring shows sinus bradycardia throughout with heart rates from 30 to 45 bpm, he did have an episode of sustained ventricular tachycardia early this morning lasting about a minute and probably below the rate cut off of his ICD. An electrocardiogram done May 19, 2019 at 6:23 AM shows sinus bradycardia at 40 bpm with a normal IL interval and nearly normal QRS duration. An echocardiogram done on May 18, 2019 shows a moderately dilated left ventricle with moderate to severe left ventricular dysfunction and ejection fraction of 30 to 35%. There are wall motion abnormalities. He has a sclerotic aortic valve without stenosis. PG Care Time/CCT Total # of Minutes Spent Total Time Spent with Patient: Total time spent is greater than 50% in coordination of care (as documented) at patient's floor/unit and/or counseling patient:
[2019-05-20] MEDS ORDERED: MIDAZOLAM HCL 5 MG/ML 1 ML VIAL ONE (13:27)
[2019-05-20] MEDS ORDERED: LIDOCAINE HCL 1% 20 ML VIAL ONE ×2 (13:27→13:28)
[2019-05-20] MEDS ORDERED: BACITRACIN INJ 50,000 UNIT VIAL ONE (13:28)
[2019-05-20] MEDS ORDERED: fentaNYL citrate 100 MCG/2 ML VIAL ONE (13:28)
[2019-05-20] MEDS ORDERED: BACITRACIN OINT 0.9 GM PKT ONE (13:28)
[2019-05-20] MEDS ORDERED: CEFAZOLIN 250 MG/ML 1 GM VIAL ONE (13:28)
--- NOTE | 2019-05-20 13:32 | Pre Anesthesia Assessment ---
Date of Service May 20, 2019 Pre Sedation Assessment Vital Signs Temp Pulse Pulse Resp BP BP Pulse Ox 05/20/19 11:14 36.9 C 41 L 18 118/47 L 97 05/20/19 08:00 41 L 05/20/19 07:35 36.6 C 39 L 18 115/51 L 96 05/20/19 04:00 36.6 C 46 L 20 115/51 L 97 05/19/19 23:33 36.9 C 46 L 18 107/46 L 96 05/19/19 19:38 36.6 C 41 L 17 112/50 L 96 05/19/19 15:51 36.3 C L 36 L 18 117/52 L 98 Cardiovascular RRR, no murmur, no edema Respiratory normal respiratory effort, lungs clear to auscultation Pre-Sedation Airway Assessment Smoking Status: Never smoker Hx Sleep Apnea: No Hx Difficult Intubation: No Short, Thick Neck: No Thyromental Distance: > or= 3.5 Finger Breadths Mallampati Class: II ASA: ASA3 NPO Status Date of Last Intake of Fluids: 05/19/19 Date of Last Intake of Solid Food: 05/19/19 Procedure Planning Contraindications for Sedation: none Current Medications Reviewed: Yes Notes The planned sedation has been discussed with the patient. Informed Consent was obtained. I have identified the patient, determined the appropriateness of sedation and have assessed the patient immediately prior to the procedure. All medicine(s) and interventions are by my order.
[2019-05-20] MEDS ORDERED: MIDAZOLAM HCL 1 MG/ML 2ML VIAL ONE (14:50)
--- NOTE | 2019-05-20 15:27 | Operative Report ---
PG Post Operative Report Pre & Post Diagnosis Operation Date: 05/20/19 13:30 Preoperative diagnosis: Sustained ventricular tachycardia, sinus bradycardia Postoperative diagnosis: Same I identified the patient and participated in the time-out.: Yes Procedure Operation Date: 05/20/19 13:30 Actual Procedures p ICD Insertion Dual - Cosme Perkins MD Surgeon Cosme Perkins MD Senior Net Programmer None Estimated Blood Loss 30 Findings See Below Good lead position, excellent measurements New ICD programmed to pace at 70 bpm. ICD off for defibrillation. Old (subcutaneous) ICD remains on 4 defibrillation. Specimens None Anesthesia Type Local Complications none Disposition Accompanied Patient To Recovery: Yes Disposition: Recovery Room Description of Procedure After obtaining informed consent for the procedure, the patient was brought to the laboratory and prepped and draped in the standard sterile manner. The left prepectoral region was anesthetized with 1% lidocaine local anesthetic and left axillary venipuncture was performed by percutaneous technique and a guidewire placed through the left subclavian vein into the superior vena cava. The area was further infiltrated with 1% lidocaine local anesthetic and a 7 cm incision was made parallel to the left clavicle and 2 cm below it and carried down to the anterior pectoralis fascia. An ICD pocket was formed by blunt dissection anterior to the pectoralis fascia and a bacitracin-soaked sponge (50,000 units in 50 cc normal saline solution) was placed in the pocket. A 10.5 [place] [employer] lead introducer was placed over the guidewire into the left subclavian vein, the dilator and guidewire were removed and a bipolar dual coil active fixation steroid tipped ventricular ICD lead was advanced through the introducer into the superior vena cava. A guidewire was placed through the introducer and the introducer was stripped from the lead and guidewire. An 8 [place] [employer] lead introducer was placed over the guidewire into the left subclavian vein, the dilator and guidewire were removed and a bipolar active fixation steroid tipped atrial lead was advanced through the introducer into the superior vena cava. A guidewire was placed back through the introducer and the introducer was stripped from the lead and guidewire. Using a curved stylette the ventricular lead was advanced through the right ventricular outflow tract into the pulmonary artery and then using a straight stylette was positioned in the right ventricular apex. The screw was extended fixing the lead in position. Pacing and sensing thresholds were evaluated in bipolar configuration and are recorded on the implant data sheet. Using a curved stylette the atrial lead was positioned in the region of the atrial appendage (although the appendage did not appear to be present) and the screw extended fixing the lead in position. Pacing and sensing thresholds were evaluated in bipolar configuration and are recorded on the implant data sheet. Once the leads were in position they were attached to the anterior pectoralis fascia using 2 sutures of 2-0 silk around each lead collar. The bacitracin- soaked sponge was removed from the pocket, hemostasis was obtained, the ICD was attached to the leads and placed in the pocket with the leads coiled beneath it. The incision was closed with a running double subcutaneous closure of 3-0 Vicryl absorbable suture, followed by running subcuticular skin closure of 4-0 Vicryl absorbable suture. Bacitracin ointment was placed on the incision and a pressure dressing applied. I attest to the content of the Intraoperative Record and any orders documented therein. Any exceptions are noted below.
--- NOTE | 2019-05-20 15:56 | Post Anesthesia Assessment ---
Date of Service May 20, 2019 Post Sedation Assessment Vital Signs Temp Pulse Pulse Resp BP BP Pulse Ox 05/20/19 15:40 70 16 106/64 95 05/20/19 15:25 70 16 121/71 95 05/20/19 11:14 36.9 C 41 L 18 118/47 L 97 05/20/19 08:00 41 L 05/20/19 07:35 36.6 C 39 L 18 115/51 L 96 05/20/19 04:00 36.6 C 46 L 20 115/51 L 97 05/19/19 23:33 36.9 C 46 L 18 107/46 L 96 05/19/19 19:38 36.6 C 41 L 17 112/50 L 96 Recovery Score Activity: Moves 4 extremities Respiration: Deep Breath/Cough Circulation: +/-20% PreAnes Value Consciousness: Fully Awake Oxygen Saturation: > 92% On Room Air Post Anesthesia Score: 10 Discharge Sedation Level of Care: Fast Track Phase II Post Sedation Plan On clinical assessment, the patient appears to have tolerated the sedation without complications. Patient is recovering as anticipated. Patient will continue to be monitored by nursing and may be discharged when sedation discharge criteria are met per below protocol. Upon Completions of procedure up to 15 minutes continue every 5 minute vital signs and the P.A.R. score; then discharge to a Phase I or Fast Track to Phase II per the following guidelines: * Discharge Patient to appropriate Phase II area if PAR is 8 or greater or return to pre- procedure baseline. The post - procedure orders will be as directed. * If PAR score is less than 8 or not return to pre-procedure baseline then patient will follow Phase I monitoring till PAR is reached for Phase II. The Phase I may be done in procedure room or may call to secure a Phase I area. * If naloxone or flumazenil are used for reversal, hold in Phase I for continued monitoring from when last reversal dose was given for a minimum of 60 minutes or longer pending the nurse and/or physician discretion of patient condition before discharge to Phase II. Please call the Sedation Physician to re-evaluate and complete post-note for discharge to Phase II area. Do NOT discharge from procedure sedation or Phase 1 until post- sedation evaluation note is complete by procedure /sedation MD Sedation Discharge Instructions to be given to the patient at discharge to home.
[2019-05-20] MEDS: LACTATED RINGER'S 1,000 ML IV SCH (16:22)
[2019-05-20] MEDS: AMIODARONE 200 MG TAB PO SCH (18:16)
[2019-05-20] MEDS: carvediloL 3.125 MG TAB PO SCH (20:57)
[2019-05-20] MEDS: ATORVASTATIN 40 MG TAB PO SCH (20:57)
[2019-05-20] MEDS: ASPIRIN 81 MG ECTAB PO SCH (20:58)
[2019-05-21] MEDS: ISOSORBIDE DINITRATE 20 MG TAB PO SCH ×2 (05:55→12:43)
[2019-05-21] MEDS ORDERED: CEFAZOLIN 1000MG 1,000 MG/7.5 ML SYR IV SCH (06:00)
[2019-05-21 06:12] LABS: Basophils # (auto) 0.01 K/uL (0-0.2); Basophils % (auto) 0.2 %; Eosinophils # (auto) 0.12 K/uL (0-0.5); Eosinophils % (auto) 2.4 %; Hematocrit (blood only) 41.3 % (42-52); Hemoglobin 14.4 g/dL (14.0-18.0); Immature Granulocytes # (auto) 0.01 K/uL (0.00-0.02); Immature Granulocytes % (auto) 0.2 %; Lymphocytes # (auto) 0.78 K/uL (1.2-3.4); Lymphocytes % (auto) 15.9 %; Mean Corpuscular Hgb Conc 34.9 g/dL (32-36); Mean Corpuscular Volume 100.2 fL (80-100); Mean Platelet Volume 10.6 fL (7.4-10.4); Monocytes # (auto) 0.87 K/uL (0.11-0.59); Monocytes % (auto) 17.7 %; Neutrophils # (auto) 3.13 K/uL (1.4-6.5); Neutrophils % (auto) 63.6 %; Platelet Count 124 K/uL (130-400); RDW Coefficient of Variation 12.7 % (11.5-14.5); RDW Standard Deviation 46.1 fL (36.4-46.3); Red Blood Count 4.12 M/uL (4.7-6.1); White Blood Count 4.92 K/uL (4.8-10.8)
[2019-05-21 06:40] LABS: BUN Creatinine Ratio 10.5 (10-20); Calcium 9.2 mg/dl (8.5-10.1); Creatinine Clr Calc Pharmacy 30.7 ml/min; Est GFR (African American) 38.3; Potassium 4.3 mmol/L (3.5-5.1)
[2019-05-21] MEDS ORDERED: SODIUM CHLORIDE 0.9% 500 ML IV ONE (07:15)
[2019-05-21] MEDS ORDERED: fentaNYL citrate 100 MCG/2 ML VIAL ONE (09:36)
[2019-05-21] MEDS ORDERED: MIDAZOLAM HCL 5 MG/ML 1 ML VIAL ONE (09:36)
--- NOTE | 2019-05-21 09:36 | Cardiology Progress Note ---
Date of Service May 21, 2019 Assessment & Plan (1) ICD (implantable cardioverter-defibrillator) in place: He has a [employer] epicardial defibrillator in place still, this is a shock only device and cannot provide back-up bradycardia support or antitachycardia pacing for ventricular tachycardia. This device has about 1/2 to 2 years of battery life remaining. He has had frequent episodes of ventricular tachycardia or ventricular fibrillation requiring ICD shock. He has been on medications to try to control it and continues to have episodes. This device cannot be programmed to improve its efficacy. I therefore implanted a standard dual-chamber ICD yesterday, that device is working well. It was programmed to pace only yesterday leaving defibrillation to his implanted [employer] device. My plan is to test the new device for efficacy and termination of ventricular fibrillation and remove the [employer] device assuming the test is adequate. I discussed the indications, procedure, risks and alternatives of defibrillator threshold testing and epicardial ICD removal (leaving lead in place) and he understands and he agrees to proceed. Consent obtained. I also discussed sedation with him and he is agreeable. We will plan on doing this procedure this morning. (2) Ventricular tachycardia: He has had multiple episodes of ventricular tachycardia is on amiodarone for therapy. He has continued to have episodes. Although we may have been able to help somewhat with antiarrhythmic medication adjustments if we increase his amiodarone without pacing support his low heart rate is problematic and we cannot add beta blockers which may help with the ventricular tachycardia as well. One option would be to increase his heart rate, often ventricular arrhythmias are heart rate related and increasing pacemaker will often help control them. I therefore implanted a dual-chamber ICD which will paces atrium and has been overnight appropriately. I did program it to 70 bpm in hopes of suppressing some of his ventricular arrhythmias. I am going to continue his amiodarone however for now and add beta-blockade. (3) Bradycardia: He has significant bradycardia, even though he was not terribly symptomatic this was interfering with our ability to properly treat his cardiomyopathy with beta-blockade which may also help with his ventricular arrhythmia. He needed heart rate support, his epicardial device cannot provide it and since he is in sinus rhythm a dual-chamber device was used. That has been pacing appropriately overnight at 70 bpm. (4) Cardiomyopathy: He has a cardiomyopathy which may be progressive based on his echocardiogram here in comparison to October (done in a different institution) and progressive cardiomyopathy may explain some of his worsening ventricular arrhythmias. He needs to be placed on optimal medical therapy to try to improve his cardiomyopathy, that includes beta-blockade. Now that we have a dual- chamber ICD in place and can properly control his heart rate we can try to titrate his beta-paul. (5) CAD (coronary artery disease), [place] coronary artery: He has coronary artery disease, he has had a relatively recent catheterization that did show significant disease however nothing felt amenable to intervention and although he had slight troponin elevation now that is most consistent with demand ischemia. He needs risk factor modification for his coronary disease but I would continue to treat medically at this time. (6) Hypotension: He was quite hypotensive this morning, this occurred perhaps an hour after receiving some of his morning medications including isosorbide. I also started low-dose carvedilol last evening. I was concerned this could have represented a pericardial effusion but the echo has disproven that. Now he feels fine his blood pressure is normal, he would prefer to go ahead with the procedure today and I believe it to be safe. Subjective He is feeling well at the time of my evaluation. He had a hypotensive episode this morning which was temporally related to receiving his morning medications early in the morning, he felt fatigued and his arms were heavy during that episode, that has all resolved with resolution of his hypotension. We did do an echocardiogram in the recovery room and that did not show an effusion. He has no significant discomfort at his ICD site. He has no other complaints. Physical Exam Physical Exam: Constitutional: Alert, cooperative and in no distress. Pulmonary: Clear to auscultation bilaterally. Cardiac: Regular rhythm with no murmur, gallop or rub. Abdomen: Soft, nontender with normal bowel sounds. Extremities: No edema. Skin: No rash, ecchymoses or petechiae. The ICD site is not swollen and not significantly ecchymotic. Dressing remains in place. Results & Data Vital Signs (Past 12 Hours) Vital Signs Temp Pulse Pulse Resp BP BP Pulse Ox 05/21/19 08:00 36.6 C 70 16 99/53 L 96 05/21/19 07:22 89/52 L 05/21/19 07:00 70 81/48 L 05/21/19 06:56 70 70/45 L 05/21/19 06:43 61/42 L 05/21/19 06:30 63/41 L 05/21/19 03:15 36.9 C 70 14 110/61 95 05/20/19 23:38 37.1 C 70 17 111/63 95 Diagnostic Findings Telemetry: Atrial pacing throughout, no tachycardia. Device interrogation: Excellent pacing and sensing characteristics in both leads. No detected tachycardia. Echocardiogram: Limited, no effusion. PG Care Time/CCT Total # of Minutes Spent Total Time Spent with Patient: Total time spent is greater than 50% in coordination of care (as documented) at patient's floor/unit and/or counseling patient:
--- NOTE | 2019-05-21 09:39 | Pre Anesthesia Assessment ---
Date of Service May 21, 2019 Pre Sedation Assessment Vital Signs Temp Pulse Pulse Pulse Resp BP BP 05/21/19 08:00 36.6 C 70 16 05/21/19 07:22 05/21/19 07:00 70 05/21/19 06:56 70 05/21/19 06:43 61/42 L 05/21/19 06:30 63/41 L 05/21/19 03:15 36.9 C 70 14 05/20/19 23:38 37.1 C 70 17 05/20/19 19:23 36.4 C L 70 19 05/20/19 17:30 70 119/65 05/20/19 17:15 70 109/68 05/20/19 17:00 70 17 114/62 05/20/19 16:45 70 17 104/52 L 05/20/19 16:30 70 14 117/80 05/20/19 16:15 70 19 110/62 05/20/19 16:00 36.8 C 70 18 104/55 L 05/20/19 15:40 70 16 05/20/19 15:25 70 16 05/20/19 11:14 36.9 C 41 L 18 BP Pulse Ox 05/21/19 08:00 99/53 L 96 05/21/19 07:22 89/52 L 05/21/19 07:00 81/48 L 05/21/19 06:56 70/45 L 05/21/19 06:43 05/21/19 06:30 05/21/19 03:15 110/61 95 05/20/19 23:38 111/63 95 05/20/19 19:23 100/57 L 96 05/20/19 17:30 97 05/20/19 17:15 98 05/20/19 17:00 97 05/20/19 16:45 95 05/20/19 16:30 92 05/20/19 16:15 95 05/20/19 16:00 96 05/20/19 15:40 106/64 95 05/20/19 15:25 121/71 95 05/20/19 11:14 118/47 L 97 Cardiovascular RRR, no murmur, no edema Respiratory normal respiratory effort, lungs clear to auscultation Pre-Sedation Airway Assessment Smoking Status: Never smoker Hx Sleep Apnea: No Hx Difficult Intubation: No Short, Thick Neck: No Thyromental Distance: > or= 3.5 Finger Breadths Mallampati Class: III ASA: ASA3 NPO Status Date of Last Intake of Fluids: 05/20/19 Time of Last Intake of Fluids: 22:00 Date of Last Intake of Solid Food: 05/20/19 Time of Last Intake of Solid Foods: 22:00 Procedure Planning Contraindications for Sedation: none Current Medications Reviewed: Yes Notes The planned sedation has been discussed with the patient. Informed Consent was obtained. I have identified the patient, determined the appropriateness of sedation and have assessed the patient immediately prior to the procedure. All medicine(s) and interventions are by my order.
[2019-05-21] MEDS ORDERED: LIDOCAINE HCL 1% 20 ML VIAL ONE (09:52)
[2019-05-21] MEDS ORDERED: BACITRACIN INJ 50,000 UNIT VIAL ONE (09:52)
[2019-05-21] MEDS ORDERED: BACITRACIN OINT 0.9 GM PKT ONE (11:27)
[2019-05-21] MEDS ORDERED: ACETAMINOPHEN 325 MG TAB PO PRN (11:32)
[2019-05-21] MEDS ORDERED: OXYCODONE/ACETAMINOPHEN 5mg/325mg TAB PO PRN (11:32)
--- NOTE | 2019-05-21 11:44 | Operative Report ---
PG Post Operative Report Pre & Post Diagnosis Operation Date: 05/21/19 10:00 Preoperative diagnosis: Subcutaneous ICD in place Postoperative diagnosis: Same I identified the patient and participated in the time-out.: Yes Procedure Operation Date: 05/21/19 10:00 Actual Procedures p ICD Generator Test Initial - Cosme Perkins MD s ICD Removal - Cosme Perkins MD Surgeon Cosme Perkins MD Water Vessel Captain None Estimated Blood Loss 20 Findings Consistent with Post-Op Diagnosis Excellent pacing and sensing characteristics through implanted dual-chamber ICD Defibrillation threshold testing adequate at less than 20 J Uneventful removal of subcutaneous ICD Specimens Removed ICD, return to [employer] Anesthesia Type Local Complications none Disposition Accompanied Patient To Recovery: Yes Disposition: Recovery Room Description of Procedure The patient was brought to the laboratory being n.p.o. after midnight, he was identified in the laboratory and connected to an external defibrillator as well as monitoring patches and other monitoring equipment. The ICD was interrogated, it was programmed to test settings including automatic defibrillator testing. A magnet was placed over his subcutaneous ICD. Sedation was provided. Ventricular fibrillation was induced by 50 Hz burst pacing and terminated automatically with a 20 J shock from the implanted [employer] ICD. This is an adequate threshold therefore the patient was prepped and draped in standard sterile manner for removal of his subcutaneous ICD. The implant scar for his subcutaneous ICD in the left axillary region was identified and local anesthetic was infiltrated in the area. An 8 cm incision was made through the old scar and carried down to the ICD generator. The generator was removed, disconnected from the lead and a lead Was placed on the lead. The lead was placed in the pocket, the incision was closed with a running double subcutaneous closure of 3-0 Vicryl followed by running subcuticular skin closure of 4-0 Vicryl. Bacitracin ointment was placed on incision and a dressing applied. I attest to the content of the Intraoperative Record and any orders documented therein. Any exceptions are noted below.
--- NOTE | 2019-05-21 11:56 | Post Anesthesia Assessment ---
Date of Service May 21, 2019 Post Sedation Assessment Vital Signs Temp Pulse Pulse Pulse Resp BP BP 05/21/19 11:50 70 20 05/21/19 11:45 70 20 05/21/19 11:40 70 20 05/21/19 11:35 70 20 05/21/19 08:00 36.6 C 70 16 05/21/19 07:22 05/21/19 07:00 70 05/21/19 06:56 70 05/21/19 06:43 61/42 L 05/21/19 06:30 63/41 L 05/21/19 03:15 36.9 C 70 14 05/20/19 23:38 37.1 C 70 17 05/20/19 19:23 36.4 C L 70 19 05/20/19 17:30 70 119/65 05/20/19 17:15 70 109/68 05/20/19 17:00 70 17 114/62 05/20/19 16:45 70 17 104/52 L 05/20/19 16:30 70 14 117/80 05/20/19 16:15 70 19 110/62 05/20/19 16:00 36.8 C 70 18 104/55 L 05/20/19 15:40 70 16 05/20/19 15:25 70 16 BP Pulse Ox 05/21/19 11:50 107/62 98 05/21/19 11:45 99/62 L 98 05/21/19 11:40 103/69 98 05/21/19 11:35 122/69 98 05/21/19 08:00 99/53 L 96 05/21/19 07:22 89/52 L 05/21/19 07:00 81/48 L 05/21/19 06:56 70/45 L 05/21/19 06:43 05/21/19 06:30 05/21/19 03:15 110/61 95 05/20/19 23:38 111/63 95 05/20/19 19:23 100/57 L 96 05/20/19 17:30 97 05/20/19 17:15 98 05/20/19 17:00 97 05/20/19 16:45 95 05/20/19 16:30 92 05/20/19 16:15 95 05/20/19 16:00 96 05/20/19 15:40 106/64 95 05/20/19 15:25 121/71 95 Recovery Score Activity: Moves 4 extremities Respiration: Deep Breath/Cough Circulation: +/-20% PreAnes Value Consciousness: Fully Awake Oxygen Saturation: > 92% On Room Air Post Anesthesia Score: 10 Discharge Sedation Level of Care: Fast Track Phase II Post Sedation Plan On clinical assessment, the patient appears to have tolerated the sedation without complications. Patient is recovering as anticipated. Patient will continue to be monitored by nursing and may be discharged when sedation discharge criteria are met per below protocol. Upon Completions of procedure up to 15 minutes continue every 5 minute vital signs and the P.A.R. score; then discharge to a Phase I or Fast Track to Phase II per the following guidelines: * Discharge Patient to appropriate Phase II area if PAR is 8 or greater or return to pre- procedure baseline. The post - procedure orders will be as directed. * If PAR score is less than 8 or not return to pre-procedure baseline then patient will follow Phase I monitoring till PAR is reached for Phase II. The Phase I may be done in procedure room or may call to secure a Phase I area. * If naloxone or flumazenil are used for reversal, hold in Phase I for continued monitoring from when last reversal dose was given for a minimum of 60 minutes or longer pending the nurse and/or physician discretion of patient condition before discharge to Phase II. Please call the Sedation Physician to re-evaluate and complete post-note for discharge to Phase II area. Do NOT discharge from procedure sedation or Phase 1 until post- sedation evaluation note is complete by procedure /sedation MD Sedation Discharge Instructions to be given to the patient at discharge to home.
[2019-05-21] MEDS: CHOLECALCIFEROL 1,000 UNITS TAB PO SCH (12:36)
[2019-05-21] MEDS: carvediloL 3.125 MG TAB PO SCH ×3 (12:37→20:10)
[2019-05-21] MEDS: ASCORBIC ACID 500 MG TAB PO SCH (12:38)
[2019-05-21] MEDS: AMIODARONE 200 MG TAB PO SCH (12:38)
[2019-05-21] MEDS: OMEGA-3 (PURIFIED FISH OIL) 1 GM CAP PO SCH (12:38)
[2019-05-21] MEDS: FUROSEMIDE 20 MG TAB PO SCH (12:38)
[2019-05-21] MEDS: FOLIC ACID 1 MG TAB PO SCH (12:38)
[2019-05-21] MEDS: PANTOprazole 40 MG TAB PO SCH (12:38)
[2019-05-21] MEDS: POTASSIUM CHLORIDE 20 MEQ TABCR PO SCH (12:38)
[2019-05-21] MEDS: VITAMIN B COMPLEX TAB PO SCH (12:39)
[2019-05-21] MEDS: RANOLAZINE 500 MG ER TAB PO SCH ×2 (12:39→21:33)
[2019-05-21] MEDS: SACUBITRIL-VALSARTAN 24-26 MG TAB PO SCH ×2 (12:39→21:34)
[2019-05-21] MEDS: CYANOCOBALAMIN 500 MCG TABLET (VITAMIN B-12) PO SCH (12:39)
[2019-05-21] MEDS: LACTATED RINGER'S 1,000 ML IV SCH (13:24)
[2019-05-21] MEDS ORDERED: LACTATED RINGER'S 500 ML IV ONE (17:27)
[2019-05-21] MEDS: ATORVASTATIN 40 MG TAB PO SCH (21:33)
[2019-05-21] MEDS: ASPIRIN 81 MG ECTAB PO SCH (21:34)
--- NOTE | 2019-05-21 22:41 | Hospitalist Progress Note ---
Date of Service May 21, 2019 Assessment & Plan (1) Bradycardia: Presented after an episode of chest pain followed by syncope from VF He had recently had his metoprolol increased to 25mg daily after a recent firing of his ICD for VT the week prior. HR in the 30-40's on tele here initially persistently and also had a 1 min long run of VT Now s/p permanent pacer/ICD placement on 05/20 and is functioning appropriately, pacing in the 70s to try to prevent further VT -continues with hypotension issues as below (2) Syncope: -Likely secondary to VF and acute blood pressure drop with use of nitroglycerin sublingual x3 in setting of taking hydralazine, isosorbide, metoprolol, Entresto, lasix BPs here have also been quite low at times with resulting lightheadedness even without any VT or VF -had ICD fire 5 days prior to admission for ventricular fibrillation and again on the day of admission -troponin mildly elevated but stable at 0.2 secondary to demand ischemia ECHO without pericardial effusion, and with low EF -Appreciate Cardiology consultation -now s/p PPM/ICD and removal of previous subcutaneous ICD -restarted amiodarone and stopped meloxitine -started Coreg instead of metoprolol -hold hydralazine, isosorbide, and lasix for now while hypotensive (3) Hypotension: BPs low overall since admission but down to 60s-70s systolic on 05/21 after starting Coreg very low dose No pericardial effusion on limited ECHO s/p pacer placement BPs respond right away to NS boluses -hold isosorbide, hydralazine, lasix -continue ENtresto and Coreg with hold parameters and suggested to the RN to s tagger administration with 1-2 hours in between to make sure BP is stable (4) Elevated troponin I level: had some chest pain that resolved quickly after SL Nitro prior to admission ECG no acute changes troponin 0.2 x 3 sets, no rise and fall check echo, EF is 35%, global hypokinesis Had recent cardiac cath 10/2018 no intervention needed Likely demand ischemia (5) CAD (coronary artery disease), [place] coronary artery: With a h/o CABG -no further CP since admission -continue aspirin, statin therapy, started Coreg to replace Toprol -hold isosorbide and hydralazine for hypotension as above--> more important to take the Entresto and Coreg for his severe CM at this time -continue Ranexa had cath 10/2018-report scanned into record-shows severe [place] and graft disease, with some collaterals from grafts (6) CHF (congestive heart failure): Remains euvolemic to a bit dry given hypotension that responds to small boluses NS -chronic systolic heart failure, EF is 35% here and was reportedly 20% on ECHO 10/2018, global hypokinesis -hold lasix 20mg daily -continue Entresto- watch renal function-had BERNADETTE on admission and now resolved -started Coreg to replace Toprol -daily weights, low Na+ diet, I/Os (7) Hypertension: BP low as above holding isosorbide, hydralazine, lasix as above -continue Entresto,Coreg with hold parameters (8) Status post aorto-coronary artery bypass graft: Obtained records from the [facility]-scanned into chart (9) Ventricular tachycardia: With h/o multiple shocks for VF/VT in the past -continue amiodarone -started COreg -continue to watch on tele -with pacer/ICD in place (10) Chronic anticoagulation: Patient reports he was prescribed Eliquis in December 2018 by his Police Service Technician and he has no idea why. Review of recent records just obtained mention a h/o paroxysmal Afib that converted on amiodarone -continue to hold Eliquis (11) Hyperlipidemia LDL goal <70: Continue atorvastatin 40 mg at bedtime. (12) GERD (gastroesophageal reflux disease): -continue pantoprazole (13) B12 deficiency: Continue 1000 mcg p.o. daily supplement -check B12 level in AM given macrocytosis (14) CKD (chronic kidney disease) stage 3, GFR 30-59 ml/min: with Acute kidney injury on admission ith Sr. 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 -avoid nephrotoxins, renally dose meds -ok to continue Entresto -holding lasix -follow BMP in AM (15) Pancytopenia: [place] low counts all around, pt unaware of being told this ever in the past -follow CBC -may need Heme referral as outpt -checking B12 level in AM (16) Pulmonary nodule: ROSE MARY 5.8 mm nodule has h/o smoking, quit 1977 -recommend outpt f/u with repeat imaging and with PCP -Discussed results with patient (17) DVT prophylaxis: Initially on heparin gtt Add ADWOA [place] today Back on Eliquis when ok with Cardio after procedure Dispo-remain on PCU due to hypotensive episodes Subjective Pt had severely low BP this AM and felt lightheaded and tingling sensation in his hands that improved with a NS bolus. This occurred in the setting of starting Coreg last night and getting isosorbide early this AM. He had his subcutaneous ICD removed then this AM after testing out his new ICD and worked well. Denies any headache, chest pain, SOB, nausea, abd pain. Is feeling well, eating. He then had another episode this evening of hypotension which again responded quickly to a 500mL NS bolus. Tele with paced rhythm in the 70s, no VT Review of Systems Review of Systems: All systems reviewed & are unremarkable except as noted in HPI & below Physical Exam Constitutional: WD/WN, vitals as above Eyes: + anicteric sclerae Neck: trachea midline, no thyromegaly Respiratory: normal respiratory effort, lungs clear to auscultation Cardiovascular: RRR, no murmur, no edema Gastrointestinal (Abdomen): normal bowel sounds, soft, nontender, no hepatosplenomegaly Musculoskeletal: Extremities: extremities normal to inspection; no cyanosis and no clubbing Skin: + ecchymosis (right periorbital region) Neurologic: moves all extremities and awake; no focal motor deficits Psychiatric: A+Ox3, euthymic affect Results & Data Vital Signs (Past 12 Hours) Vital Signs Temp Pulse Resp BP Pulse Ox 05/21/19 21:31 70 110/58 L 05/21/19 20:08 70 108/46 L 05/21/19 19:30 36.8 C 68 20 112/63 95 05/21/19 18:24 36.8 C 60 20 120/69 97 05/21/19 18:00 36.6 C 67 20 107/65 96 05/21/19 17:00 36.6 C 67 20 79/37 L 96 05/21/19 16:00 36.4 C L 67 20 79/37 L 96 05/21/19 15:39 36.9 C 70 16 96/60 L 94 05/21/19 15:00 36.5 C 67 20 93/52 L 96 05/21/19 14:47 36.6 C 56 L 20 90/59 L 05/21/19 14:18 36.8 C 60 18 93/69 L 96 05/21/19 13:48 36.6 C 60 20 94/68 L 96 05/21/19 13:18 36.6 C 60 18 93/67 L 96 05/21/19 12:48 36.7 C 60 20 98/67 L 96 05/21/19 12:18 36.6 C 60 20 99/68 L 98 05/21/19 12:03 36.6 C 60 20 107/58 L 98 05/21/19 11:50 70 20 107/62 98 05/21/19 11:45 70 20 99/62 L 98 05/21/19 11:40 70 20 103/69 98 05/21/19 11:35 70 20 122/69 98 Laboratory Results 05/21/19 05/21/19 Range/Units 05:45 05:45 WBC 4.92 (4.8-10.8) K/uL RBC 4.12 L (4.7-6.1) M/uL Hgb 14.4 (14.0-18.0) g/dL Hct 41.3 L (42-52) % MCV 100.2 H (80-100) fL MCH 35.0 H (25-34) pg MCHC 34.9 (32-36) g/dL RDW Std Deviation 46.1 (36.4-46.3) fL RDW Coeff of Sandie 12.7 (11.5-14.5) % Plt Count 124 L (130-400) K/uL MPV 10.6 H (7.4-10.4) fL Immature Gran % (Auto) 0.2 % Neut % (Auto) 63.6 % Lymph % (Auto) 15.9 % [place] % (Auto) 17.7 % Eos % (Auto) 2.4 % Baso % (Auto) 0.2 % Immature Gran # (Auto) 0.01 (0.00-0.02) K/uL Neut # (Auto) 3.13 (1.4-6.5) K/uL Lymph # (Auto) 0.78 L (1.2-3.4) K/uL [place] # (Auto) 0.87 H (0.11-0.59) K/uL Eos # (Auto) 0.12 (0-0.5) K/uL Baso # (Auto) 0.01 (0-0.2) K/uL Sodium 137 (136-145) mmol/L Potassium 4.3 (3.5-5.1) mmol/L Chloride 102 (98-107) mmol/L Carbon Dioxide 27 (21-32) mmol/L Anion Gap 7.0 (3-11) BUN 20 H (7-18) mg/dl Creatinine 1.89 H (0.6-1.4) mg/dl Est Cr Clr Drug Dosing 30.7 ml/min Est GFR ( Amer) 38.3 Est GFR (Non-Af Amer) 33.0 BUN/Creatinine Ratio 10.5 (10-20) Glucose 102 H (70-99) mg/dl Calcium 9.2 (8.5-10.1) mg/dl Magnesium 2.0 (1.8-2.4) mg/dl PG Care Time/CCT Total # of Minutes Spent Total Time Spent with Patient: Total time spent is greater than 50% in coordination of care (as documented) at patient's floor/unit and/or counseling patient: (1) Syncope Syncope type: unspecified Qualified Code(s): R55 - Syncope and collapse
[2019-05-22 05:54] LABS: Basophils # (auto) 0.01 K/uL (0-0.2); Basophils % (auto) 0.2 %; Eosinophils # (auto) 0.09 K/uL (0-0.5); Eosinophils % (auto) 1.5 %; Hematocrit (blood only) 42.4 % (42-52); Hemoglobin 14.8 g/dL (14.0-18.0); Lymphocytes # (auto) 0.81 K/uL (1.2-3.4); Lymphocytes % (auto) 13.9 %; Mean Corpuscular Hemoglobin 35.2 pg (25-34); Mean Corpuscular Hgb Conc 34.9 g/dL (32-36); Mean Platelet Volume 10.4 fL (7.4-10.4); Monocytes # (auto) 0.94 K/uL (0.11-0.59); Monocytes % (auto) 16.2 %; Neutrophils # (auto) 3.97 K/uL (1.4-6.5); Neutrophils % (auto) 68.2 %; Platelet Count 124 K/uL (130-400); RDW Coefficient of Variation 12.8 % (11.5-14.5); White Blood Count 5.82 K/uL (4.8-10.8)
[2019-05-22 06:27] LABS: BUN Creatinine Ratio 11.2 (10-20); Calcium 9.2 mg/dl (8.5-10.1); Creatinine Clr Calc Pharmacy 30.3 ml/min; Est GFR (African American) 37.8; Est GFR (Non-African American) 32.6; Magnesium 1.9 mg/dl (1.8-2.4); Potassium 4.1 mmol/L (3.5-5.1)
[2019-05-22 08:13] LABS: Folate (Folic Acid) 15.87 ng/ml (>5.38)
[2019-05-22] MEDS: SACUBITRIL-VALSARTAN 24-26 MG TAB PO SCH (08:14)
[2019-05-22] MEDS: POTASSIUM CHLORIDE 20 MEQ TABCR PO SCH (08:15)
[2019-05-22] MEDS: FOLIC ACID 1 MG TAB PO SCH (08:15)
[2019-05-22] MEDS: RANOLAZINE 500 MG ER TAB PO SCH (08:15)
[2019-05-22] MEDS: OMEGA-3 (PURIFIED FISH OIL) 1 GM CAP PO SCH (08:15)
[2019-05-22] MEDS: carvediloL 3.125 MG TAB PO SCH (08:15)
[2019-05-22] MEDS: AMIODARONE 200 MG TAB PO SCH (08:15)
[2019-05-22] MEDS: VITAMIN B COMPLEX TAB PO SCH (08:15)
[2019-05-22] MEDS: ASCORBIC ACID 500 MG TAB PO SCH (08:15)
[2019-05-22] MEDS: CYANOCOBALAMIN 500 MCG TABLET (VITAMIN B-12) PO SCH (08:15)
[2019-05-22] MEDS: CHOLECALCIFEROL 1,000 UNITS TAB PO SCH (08:16)
[2019-05-22] MEDS: PANTOprazole 40 MG TAB PO SCH (08:16)
--- NOTE | 2019-05-22 08:21 | XRay Report ---
TWO VIEW CHEST CLINICAL HISTORY: Pacemaker implantation. FINDINGS: PA and lateral chest radiographs are correlated with chest CT dated 05/17/2019. The patient is status post midline sternotomy. A 2-lead cardiac AICD has been placed and partially obscures the left upper chest. Leads project over the right atrial appendage and the right ventricle. An additiona l lead projects over the left chest. The heart is enlarged noting atherosclerotic calcification of th e thoracic aorta. The pulmonary vasculature is noncongested. Enlargement of the central pulmonary art eries suggests pulmonary artery hypertension. Chronic interstitial thickening is similar to previous. There is no airspace consolidation or pleural effusion. There is no pneumothorax. The skeletal struc tures are osteopenic. The bony thorax appears intact. Degenerative change is noted throughout the tho racic spine. Subcutaneous gas is noted in the left chest wall, likely related to removal of the previ ous pacemaker. IMPRESSION: 1. A 2-lead cardiac AICD has been placed as detailed above. No pneumothorax is seen post procedure. 2. Cardiomegaly without radiographic evidence of congestive failure. 3. No airspace consolidation or pleural effusion is identified. Electronically signed by: Brando Storey M.D. 05/22/2019 8:20 AM
--- NOTE | 2019-05-22 11:40 | Cardiology Progress Note ---
Date of Service May 22, 2019 Assessment & Plan (1) ICD (implantable cardioverter-defibrillator) in place: He is now postop day #2 following dual-chamber ICD implantation and the site looks good, the device is working well and he should be stable for discharge from surgical standpoint. He is also day 1 following epicardial defibrillator explantation from the left axillary region, that site looks good. I have arranged follow-up for him in our office tomorrow morning and that is in his discharge information. I have also included postoperative information in his discharge paperwork. (2) Ventricular tachycardia: He has had multiple episodes of ventricular tachycardia while on amiodarone therapy. He continued to have episodes which on monitoring were relatively monomorphic and likely amenable to antitachycardia pacing which is subcutaneous device could not do. Additionally there may been a bradycardia induced component to the arrhythmia since he did run a very low heart rate and we could not go up on his amiodarone or his beta-paul due to the bradycardia. We therefore implanted a dual-chamber ICD and I set the programming rate to 70 bpm 2 days ago, so far he has had no further ventricular tachycardia. I did go up on his beta-blockade (and switch to carvedilol) and restarted his amiodarone at that time. My approach would be to continue the current regimen and try to titrate his beta-paul to good heart failure doses while maintaining his current atrial pacing rate and amiodarone therapy. Once his beta-paul was titrated to good doses and he has no further ventricular tachycardia than I would probably start to back off on either the atrial pacing rate or the amiodarone therapy. We will not be following the patient but I will leave this up to his following retail personal banker. (3) Bradycardia: He has significant bradycardia, even though he was not terribly symptomatic this was interfering with our ability to properly treat his cardiomyopathy with beta-blockade which may also help with his ventricular arrhythmia. He needed heart rate support, his epicardial device could not provide it and since he is in sinus rhythm a dual-chamber device was used. That has been pacing appropriately at 70 bpm. The rate was increased slightly to help suppress ventricular tachycardia. (4) Cardiomyopathy: He has a cardiomyopathy which may be progressive based on his echocardiogram here in comparison to May (done in a different institution) and progressive cardiomyopathy may explain some of his worsening ventricular arrhythmias. He needs to be placed on optimal medical therapy to try to improve his cardiomyopathy, that includes higher doses of beta-blockade. Now that we have a dual-chamber ICD in place and we can properly control his heart rate we can try to titrate his beta-paul. He is somewhat limited at the moment by hypotension, therefore I do not think we should increase that as yet but that can be done as an outpatient. (5) CAD (coronary artery disease), [place] coronary artery: He has coronary artery disease, he has had a relatively recent catheterization that did show significant disease however nothing felt amenable to intervention and although he had slight troponin elevation this admission that is most consistent with demand ischemia. He needs risk factor modification for his coronary disease but I would continue to treat medically at this time. (6) Hypotension: He was quite hypotension on several occasions, this occurred after receiving some of his morning medications, mostly isosorbide mononitrate. I was concerned this could have represented a pericardial effusion but the echo has disproven that. I suspect that his hydralazine and nitrates were in place for his cardiomyopathy since we could not titrate beta-blockade prior to receiving a dual-chamber pacing device and therefore we are going to discontinue these in the face of the hypotension. I also suspect that he does not need Ranexa since he does not have anginal symptoms, perhaps that was being used to suppress ischemia related ventricular tachycardia but I am hopeful that going up on the beta-blockade, amiodarone and with increased pacing rate that that will not be an issue. He has had no further symptoms I do not think we need the Ranexa. This will allow us blood pressure room and hopefully we can titrate his Entresto and carvedilol in the future as an outpatient. Subjective He is feeling quite well. He has had no chest discomfort, no palpitations and no lightheadedness or dizziness (although he does have symptoms of tiredness when his blood pressure is low). Today he has been ambulatory and is sitting at his bedside and feeling quite well. Physical Exam Physical Exam: His incisions look good, I change the dressings on both his left infraclavicular ICD implantation site and the incision is clean and dry, he has some mild ecchymosis which is not unexpected and no swelling or tenderness. His subcutaneous ICD explantation site is also clean and dry, no ecchymosis, swelling or bleeding. Results & Data Vital Signs (Past 12 Hours) Vital Signs Temp Pulse Pulse Resp BP Pulse Ox 05/22/19 08:25 36.7 C 70 18 120/65 98 05/22/19 03:35 36.9 C 70 18 96/63 L 95 05/22/19 00:00 70 05/21/19 23:31 36.5 C 70 16 113/62 94 Diagnostic Findings Telemetry: Atrial pacing throughout at 70 bpm which is appropriate and is a program rate of the device. No ventricular tachycardia since dual-chamber ICD implantation. PG Care Time/CCT Total # of Minutes Spent Total Time Spent with Patient: Total time spent is greater than 50% in coordination of care (as documented) at patient's floor/unit and/or counseling patient:
--- NOTE | 2019-05-22 14:13 | Discharge Summary ---
Date of Service May 22, 2019 Admission HPI Per Admitting Provider The patient is a 78-year-old male with a past medical history including ventricular fibrillation status post AICD placement, who most recently has pacer fire 5 days ago. Review of the strip from that event, which was obtained from the [facility] in [place], showed ventricular fibrillation that was successfully terminated by defibrillator shock. The patient was experiencing some chest discomfort this evening, then he took 3 sublingual nitroglycerin tablets, and then passed out. He did sustain a right scalp bruise and hematoma. Discharge Exam Constitutional WD/WN, vitals as above Eyes + anicteric sclerae Neck trachea midline, no thyromegaly Respiratory normal respiratory effort, lungs clear to auscultation Cardiovascular RRR, no murmur, no edema Rate/Rhythm: regular rhythm and + bradycardic Heart Sounds: no murmur Extremities: no calf tenderness and no edema Gastrointestinal (Abdomen) normal bowel sounds, soft, nontender, no hepatosplenomegaly Musculoskeletal Extremities: extremities normal to inspection; no cyanosis and no clubbing Skin no rashes, warm and dry + ecchymosis (right periorbital region) Neurologic moves all extremities and awake; no focal motor deficits Psychiatric A+Ox3, euthymic affect Discharge Data Allergies Allergy/AdvReac Type Severity Reaction Status Date / Time sulfamethoxazole Allergy Intermediate Flu like Verified 05/17/19 22:04 [From Bactrim] symptoms trimethoprim [From Bactrim] Allergy Intermediate Flu like Verified 05/17/19 22:04 symptoms Consultations 05/17/19 20:26 ED Decision to Admit Stat 05/17/19 23:56 Consult Cardiology Routine Consult Case Management - Discharge Planning Routine 05/18/19 13:37 Consult Health Information Management Routine 05/18/19 13:44 Consult Health Information Management Routine Procedures Performed Operation Date: 05/20/19 13:30 Actual Procedures p ICD Insertion Single or Dual - Cosme Perkins MD Operation Date: 05/21/19 10:00 Actual Procedures p ICD Generator Test Initial - Cosme Perkins MD s ICD Removal - Cosme Perkins MD Ordered Studies 05/17/19 18:24 CT head/brain wo con Stat 05/17/19 18:57 CT cervical spine wo con Stat CT chest wo con Stat CT thoracic spine wo con Stat 05/20/19 13:30 EP Lab Images for PACS ONCE 05/20/19 14:12 CL Cath Imgs for PACS use only Routine 05/21/19 10:07 CL Cath Imgs for PACS use only Routine Hospital Course (1) Bradycardia: Presented after an episode of chest pain followed by syncope from VF He had recently had his metoprolol increased to 25mg daily after a recent firing of his ICD for VT the week prior. HR in the 30-40's on tele here initially persistently and also had a 1 min long run of VT Now s/p permanent pacer/ICD placement on 05/20 and is functioning appropriately, pacing in the 70s to try to prevent further VT -continues with hypotension issues as below (2) Syncope: -Likely secondary to VF and acute blood pressure drop with use of nitroglycerin sublingual x3 in setting of taking hydralazine, isosorbide, metoprolol, Entresto, lasix BPs here have also been quite low at times with resulting lightheadedness even without any VT or VF -had ICD fire 5 days prior to admission for ventricular fibrillation and again on the day of admission -troponin mildly elevated but stable at 0.2 secondary to demand ischemia ECHO without pericardial effusion, and with low EF -Appreciate Cardiology consultation -now s/p PPM/ICD and removal of previous subcutaneous ICD -restarted amiodarone and stopped meloxitine -started Coreg instead of metoprolol -hold hydralazine, isosorbide, and lasix for now while hypotensive (3) Hypotension: BPs low overall since admission but down to 60s-70s systolic on 05/21 after starting Coreg very low dose No pericardial effusion on limited ECHO s/p pacer placement BPs respond right away to NS boluses -hold isosorbide, hydralazine, lasix -continue ENtresto and Coreg with hold parameters and suggested to the RN to stagger administration with 1-2 hours in between to make sure BP is stable (4) Elevated troponin I level: had some chest pain that resolved quickly after SL Nitro prior to admission ECG no acute changes troponin 0.2 x 3 sets, no rise and fall check echo, EF is 35%, global hypokinesis Had recent cardiac cath 10/2018 no intervention needed Likely demand ischemia (5) CAD (coronary artery disease), [place] coronary artery: With a h/o CABG -no further CP since admission -continue aspirin, statin therapy, started Coreg to replace Toprol -hold isosorbide and hydralazine for hypotension as above--> more important to take the Entresto and Coreg for his severe CM at this time -continue Ranexa had cath 10/2018-report scanned into record-shows severe [place] and graft disease, with some collaterals from grafts (6) CHF (congestive heart failure): Remains euvolemic to a bit dry given hypotension that responds to small boluses NS -chronic systolic heart failure, EF is 35% here and was reportedly 20% on ECHO 10/2018, global hypokinesis -hold lasix 20mg daily -continue Entresto- watch renal function-had BERNADETTE on admission and now resolved -started Coreg to replace Toprol -daily weights, low Na+ diet, I/Os (7) Hypertension: BP low as above holding isosorbide, hydralazine, lasix as above -continue Entresto,Coreg with hold parameters (8) Status post aorto-coronary artery bypass graft: [facility] (9) Ventricular tachycardia: With h/o multiple shocks for VF/VT in the past -continue amiodarone -started COreg -continue to watch on tele -with pacer/ICD in place (10) Chronic anticoagulation: Patient reports he was prescribed Eliquis in December 2018 by his Boat Outfitting Supervisor and he has no idea why. Review of recent records just obtained mention a h/o paroxysmal Afib that converted on amiodarone -continue to hold Eliquis (11) Hyperlipidemia LDL goal <70: Continue atorvastatin 40 mg at bedtime. (12) GERD (gastroesophageal reflux disease): -continue pantoprazole (13) B12 deficiency: Continue 1000 mcg p.o. 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 -avoid nephrotoxins, renally dose meds -ok to continue Entresto -holding lasix -follow BMP in AM (15) Pancytopenia: [place] low counts all around, pt unaware of being told this ever in the past -follow CBC -may need Heme referral as outpt -checking B12 level in AM (16) Pulmonary nodule: ROSE MARY 5.8 mm nodule has h/o smoking, quit 1977 -recommend outpt f/u with repeat imaging and with PCP -Discussed results with patient (17) DVT prophylaxis: Initially on heparin gtt Add ADWOA canchola today Back on Eliquis when ok with Cardio after procedure Dispo-remain on PCU due to hypotensive episodes Discharge Plan Discharge Items Patient Disposition: Home - Self-Care Reason For Visit: SYNCOPE Discharge Diagnosis: Syncope, Ventricular fibrillation and tachycardia, Bradycardia Condition on Discharge: Good Goals: You have been hospitalized for an acute medical problem. During your stay at [facility], we have made an effort to correct the problem that brought you to the hospital while keeping you as comfortable as possible. Medications were used to bring your condition under control and your discharge instructions will include directions for any medications you should take after leaving the hospital. Please make sure you see your Primary Care Provider as part of your follow up plan. Activity: As commented below Non-emergency contact: Primary Care Provider and Boat Outfitting Supervisor Call non-emergency contact if: you have any medication questions, your symptoms worsen, your pain is not controlled, your pain is worsening, your pain is unusual for you, your pain is concerning for you, your temperature is above 101, your wound has increased redness, your wound has increased drainage and your wound pain has increased Follow-up/Referrals: Cosme Perkins MD [Physician] - 05/23/19 10:30 am PCPUNRULY [Physician] - 05/27/19 10:00 am (A follow up appt. has been made for you with your PCP, Dr. Maurice, on May 27 at 10:00am. The first available appt. with your salon stylist, Dr. Pack, is on Jul.08 at 3:00pm.) Diet: Low Sodium (2gm) Fluids: 1800ml (7 cups) Addtl Attending Provider Instructions: You were admitted after passing out from low blood pressure and ventricular fibrillation. You had a pacemaker/defibrillator placed and your medications were adjusted due to low blood pressure. Please follow the medication instructions carefully. Follow up with your PCP as scheduled and with Dr. Perkins tomorrow for a wound check. It is important that you get into see your Boat Outfitting Supervisor in the near future. You will also need to have your sutures removed from your forehead in about 1 week. ACTIVITY RECOMMENDATIONS: * Do not raise left arm over head for 2 weeks. SPECIAL CARE INSTRUCTIONS: * If bleeding occurs, apply direct pressure to area for 5 minutes. * Call your doctor if you have severe pain, fever, drainage or bleeding at site. * Keep dressing on and dry. * Keep any scheduled doctor's appointment. * Implant Card - hand held device with website information given. SKIN IRRITATION: * You may experience some redness and/or swelling in the area where radiation was administered. If any skin irritation occurs, please contact your family physician. FOLLOW UP VISIT: Keep any scheduled doctor appointments. Addtl Garment Folder Provider Instructions: Call your Primary Care doctor if any of the following symptoms or problems start or get worse: * Shortness of breath or difficulty breathing * Wake up at night short of breath * Chest pain * Cough * Swelling of your hands, feet, or legs * More fatigued or tired with your normal activity * Palpitations - sudden fast heart beats WEIGHT * Weigh yourself every morning after using the bathroom. * Use the same scale. * Wear the same amount of clothing. * Write your weight down on a chart. * Call your Primary Care doctor if you gain more than 2-3 pounds in 1-2 days. MEDICATIONS * Use this discharge instruction sheet for medication instructions. * Take your medications at the time your doctor ordered. * Do not skip a dose of your medicines. * If you miss a dose of medicine, take it as soon as possible, but DO NOT DOUBLE A DOSE. * Read your medicine information when you get home. * Know all of the side effects of your medicine. If in doubt, ask your pharmacist * Call your Primary Care doctor's office if you have any side effects. * Be sure all of your doctors know what medicine and herbs you take (including cold, flu, and herbal medicine). Take the following with you to your follow-up doctor appointments: * Weight Chart * Medication List * List of questions Do not drink excessive alcohol, beer or wine. Pending Studies at Discharge: No Stand-Alone Forms: [facility] Medications and DC Order Prescriptions: New acetaminophen [Mapap (acetaminophen)] 325 mg Tablet 650 mg PO Q4H PRN (Reason: pain) Qty: 30 RF: 0 carvedilol 3.125 mg Tablet 3.125 mg PO BID Qty: 60 RF: 0 Continued atorvastatin 40 mg Tablet 40 mg PO HS RF: 0 ascorbic acid (vitamin C) [Vitamin C] 1,000 mg Tablet 2,000 mg PO QAM RF: 0 amiodarone 200 mg Tablet 200 mg PO QAM RF: 0 cod liver oil Capsule 1 cap PO QAM RF: 0 cyanocobalamin (vitamin B-12) [Vitamin B-12] 1,000 mcg Tablet 1,000 mcg PO QAM RF: 0 aspirin 81 mg Tablet,Delayed Release (Dr/Ec) 81 mg PO HS RF: 0 omeprazole 20 mg Capsule,Delayed Release(Dr/Ec) 20 mg PO QAM RF: 0 folic acid 1 mg Tablet 1 mg PO QAM RF: 0 furosemide 20 mg Tablet 20 mg PO QAM RF: 0 vitamin B complex Capsule 1 cap PO QAM RF: 0 cholecalciferol (vitamin D3) [Vitamin D3] 5,000 unit Tablet 5,000 unit PO QAM RF: 0 omega 2-mrp-kme-fish oil [Fish Oil] 1,000 mg (120 mg-180 mg) Capsule 2 cap PO QAM RF: 0 Eliquis 5 mg tablet 5 mg PO BID RF: 0 potassium chloride 20 mEq Tablet Extended Release 20 meq PO QAM RF: 0 Entresto 24-26 mg tablet 1 tab PO BID RF: 0 Discontinued hydralazine 10 mg Tablet 30 mg PO TID RF: 0 metoprolol succinate 25 mg Tablet Extended Release 24 Hr 25 mg PO QAM RF: 0 ranolazine 500 mg tablet extended release 12 hr 500 mg PO BID RF: 0 isosorbide dinitrate 20 mg Tablet 20 mg PO BID RF: 0 Discharge Orders: Discharge Order (Routine); Ordered 05/22/19 Ordered By: Vi Gama Admission Data Admit Date/Time: 05/17/19 22:33 Attending Provider: Vi Gama Admit Provider: Garcia Loredo Primary Care Provider: Brayan Maurice Other Providers: Garcia Loredo ; Cosme Perkins
== END 2019-05-22 15:38 | disposition home or self-care (01) | DRG 227 ==
LOC: ED 18:05 → 2E 22:33 → SUATTDRO 22:33 → 2E 23:12
PROC: EPB.ICD (2019-05-20 13:30)